=== PATIENT | male | born 1940 | race Caucasian/White ===

== ENCOUNTER → 2018-05-28 10:33 | Outpatient (CLI) | payer SELFPAY ==
--- NOTE | 2018-05-28 10:36 | ECHOD_ITS ---
Reason For Study: CARDIOMYOPATHY Procedure This was a 2D Doppler, Color Flow transthoracic echocardiogram. The exam was of adequate technical quality. Exam performed in department. Left Ventricle Moderately dilated left ventricle. Moderate concentric left ventricular hypertrophy. Severe global left ventricular systolic dysfunction. The estimated ejection fraction is 20 %. Septal motion consistent with IVCD. Diastolic function: considered indeterminate. Right Ventricle Mildly dilated right ventricle. Mild global right ventricular systolic dysfunction. Atria The left atrium is mildly enlarged. Normal right atrium. No doppler evidence for ASD. Mitral Valve There is no mitral annular calcification. Mild papillary muscle dysfunction of the mitral valve. Trivial mitral valve insufficiency. Tricuspid Valve Normal tricuspid valve. Trivial tricuspid valve insufficiency. Aortic Valve Trisinus/trileaflet aortic valve. Mild focal aortic valve thickening. Pulmonic Valve The pulmonic valve is not well visualized. Mild (1+) pulmonic valve insufficiency. Great Vessels Normal sized aortic root. Pericardium/Pleural No pericardial effusion. MMode/2D Measurements & Calculations LVIDd: 5.6 cm IVSd: 1.7 cm LAV(MOD-bp): 50.1 ml LVIDs: 5.1 cm LVPWd: 1.3 cm LAV(MOD-bp) Indexed: 27.7 ml/m2 RVDd: 3.7 cm FS: 8.9 % LAV(MOD-sp2): 54.4 ml LAV(MOD-sp4): 38.8 ml LA A4 area: 14.9 cm2 RA A4 area: 14.4 cm2 Doppler Measurements & Calculations MV E max gavin: 32.1 cm/sec Lat Peak E' Gavin: 3.2 cm/sec Med Peak E' Gavin: 3.8 cm/sec MV A max gavin: 81.9 cm/sec E/E' lat: 10.0 E/E' med: 8.5 MV E/A: 0.39 Ao V2 max: 132.7 cm/sec LV V1 max: 61.0 cm/sec PA V2 max: 75.4 cm/sec Ao max P.3 mmHg LV V1 max P.5 mmHg Interpretation Summary Moderately dilated left ventricle. Severe global left ventricular systolic dysfunction. The estimated ejection fraction is 20 %. Septal motion consistent with IVCD. Moderate concentric left ventricular hypertrophy. Mildly dilated right ventricle. Mild global right ventricular systolic dysfunction. The left atrium is mildly enlarged. Mild papillary muscle dysfunction of the mitral valve. Trivial mitral valve insufficiency. Trivial tricuspid valve insufficiency. Mild focal aortic valve thickening. Mild (1+) pulmonic valve insufficiency. Diastolic function: considered indeterminate. Ordering Physician: Alfredo Garcia Referring Physician: Alfredo Garcia Performed By: Alisa RDCS, Aurora REBOLLEDO and Student
== END ==
PROVIDERS: Visit Provider Internal Medicine Cardiovascular Disease
DX: I42.9 Cardiomyopathy, unspecified (principal)
CPT/HCPCS: 93306

== ENCOUNTER 2018-10-30 12:50 | Emergency (ER) | payer SELFPAY ==
[2018-10-30 12:51] VITALS: BP 125/74; PULSE 71; RESP 16; TEMP 36.6; O2SAT 97; BMI 26.9
--- NOTE | 2018-10-30 13:11 | EKG12_ITS ---
Test Reason : SYNCOPE Blood Pressure : / mmHG Vent. Rate : 080 BPM Atrial Rate : 080 BPM P-R Int : 178 ms QRS Dur : 136 ms QT Int : 424 ms P-R-T Axes : 044 -21 014 degrees QTc Int : 489 ms Atrial-sensed ventricular-paced rhythm Abnormal ECG Confirmed by ADRIANA FAIR, TANG ([id number]), deputy editor in chief AYDEN ERNST ([id number]) on 11/01/2018 12:40:18 PM Referred By: BIJAL Confirmed By:TANG WRIGHT MD
--- NOTE | 2018-10-30 13:11 | CT_ITS ---
STUDY: CTA CHEST REASON FOR EXAM: Male, 78 years old. Chest pain. Syncope. Recent pacemaker placement. RADIATION DOSAGE (If Supplied By Facility): CTDIvol = ( 14.97 ) mGy, DLP = ( 649.56 ) mGycm TECHNIQUE: The examination was performed with the intravenous administration of 75ml ml of Isovue 370 contrast material. Post-processing of the angiographic images was performed, with multiplanar reformation and 3D reconstruction. Individualized dose optimization techniques were used for this CT. COMPARISON: None. FINDINGS: The study is limited by patient motion and by streak artifact due to the patient's arms being at his sides. There is a segmental pulmonary embolus in the left upper lobe (image 137 series 2). There are no additional pulmonary emboli. There are no pulmonary infiltrates or pleural effusions. There is atelectasis at the lung bases. There is a pacemaker in place. The heart is normal in size. There is a small pericardial effusion which measures intermediate to high density and likely contains blood. There is no thoracic lymphadenopathy. Images through the upper abdomen demonstrate no significant abnormality. There are no destructive osseous lesions. CT/CTA Chest W/WO Contrast IMPRESSION: Segmental pulmonary embolus in the left upper lobe. Small pericardial effusion which measures intermediate to high density and likely contains blood. Bibasilar atelectasis. Otherwise, clear lungs. N.B. : The above information has been verbally conveyed by William Tinoco to Federico Machado MD, on 10/30/2018 15:04:23 (ET). Electronically Signed: William Tinoco, at 14:56 EST Tel , Service support ,
[2018-10-30 13:12] VITALS: O2SAT 97
--- NOTE | 2018-10-30 13:29 | ED.DCSUM_ITS ---
- ER Visit Summary Date of Service: 10/30/18 Chief Complaint: Syncope, shortness of breath, lower chest pain History of Present Illness: The patient is a 78 M who had AN internal pacemaker placed on October 28, 2 days ago, at [facility]. He developed pain in his lower sternal area yesterday. Today he had a syncopal episode in the bathroom. He denies straining. He continues to have this pain in the lower sternal area. He also has shortness of breath. Physical Examination: Vital signs reviewed. HEENT exam unremarkable. Heart is regular rate and rhythm without murmurs. Lungs are clear to auscultation. He has some lower sternal chest discomfort. Abdomen is soft and nontender. Extremities reveal no edema. Skin exam normal. Neurologic exam normal. Test Results: EKG is paced with a rate of 80. Nonspecific ST and T wave changes noted. Laboratory studies show a creatinine 1.75. Troponin is 0.105. CT of the chest reveals a segmental PE on the left. There is a small pericardial effusion Emergency Department Course and Treatment: Patient does have a PE but there is also a small pericardial effusion. Radiologist noted that this is likely blood but there is no extravasation of contrast into the pericardium. I will start the patient on heparin because I feel he needs this for the PE but will need to monitor his vital signs just in case the pericardial effusin gets larger. She was discussed with the [facility] for transfer back there due to his recent pacemaker placement there and possible need for CT surgery Treatment Plan: [] Disposition: Transfer Impression: Pulmonary embolism, hemorrhagic pericardial effusion This note was generated with [employer] dictation software. It may contain incorrect words, spelling, and punctuation that were not noted in review of the chart prior to signing ED Disposition - Plan for ED Patient: Chief Complaint: Syncope Referrals: Tamiko Copeland MD [Primary Care Provider] -
[2018-10-30 13:30] LABS: Absolute Lymphocyte Count 0.75 X10^3/ul (0.83-4.51); Absolute Neutrophil Count 11.3 X10^3/uL (2.0-7.7); Basophil# 0.02 X10^3/uL; Basophil% 0.2 % (0-1); Eosinophil# 0.13 X10^3/uL; Hematocrit 42.3 % (40-54); Hemoglobin 14.2 g/dl (13.0-16.5); Lymphocyte # 0.75 X10^3/ul (4.0); Lymphocyte % 5.7 % (19-41); Mean Corp Hgb Conc 33.6 g/gl (32-36); Mean Corpuscular Hgb 29.9 pg (27.0-32.0); Mean Corpuscular Volume 89.1 fL (80-94); Mean Platelet Vol. 10.8 fl (6.2-12.0); Monocyte# 0.96 X10^3/uL; Monocyte% 7.3 % (0-10); Neutrophil # 11.32 X10^3/uL (2.7-7.7); Neutrophil % 85.6 % (47-70); Platelet Count 141 K/mm3 (150-450); RBC Distribution Width CV 13.5 % (11.6-14.6); RBC Distribution Width SD 44.1 fl (35.1-43.9); Red Blood Count 4.75 M/mm3 (4.6-6.2); White Blood Count 13.2 K/mm3 (4.4-11.0)
[2018-10-30 13:33] LABS: POSITIVE COUNT NO; POSITIVE DIFFERENTIAL NO; POSITIVE MORPHOLOGY NO
[2018-10-30 13:40] LABS: Anion Gap 11 (5-15); BUN 28 mg/dL (7-18); Calcium,Total 8.7 mg/dL (8.5-10.1); Chloride 106 mmol/L (98-107); Creatinine, Serum 1.75 mg/dL (0.70-1.30); EST Glomerular Filtration Rate 40 mL/min (>60); Est Glom Filt Rate - Afr Amer 49 mL/min (>60); Glucose 129 mg/dL (74-106); Potassium 4.4 mmol/L (3.5-5.1); Sodium Level 139 mmol/L (136-145)
[2018-10-30 14:31] VITALS: BP 160/113; PULSE 77; RESP 14; O2SAT 96
[2018-10-30] MEDS: 0.9% Normal Saline 1,000 ML 999 ML IV (14:31)
[2018-10-30 15:34] VITALS: BP 168/87; PULSE 88; RESP 19; O2SAT 96
[2018-10-30 15:34] LABS: Partial Thromboplast Time 29.4 Seconds (24.1-36.2)
[2018-10-30] MEDS: HEPARIN/D5w 25,000 UNITS 25,000 UNITS/250 ML IV.SOLN. 12 UNITS IV (15:35)
[2018-10-30 17:03] VITALS: BP 168/105; PULSE 83; RESP 17; O2SAT 97
== END 2018-10-30 17:12 | disposition short-term general hospital (02) ==
PROVIDERS: Emergency Provider Emergency Medicine
DX: I26.99 Other pulmonary embolism without acute cor pulmonale (principal); I31.3 Pericardial effusion (noninflammatory); Z95.0 Presence of cardiac pacemaker; Z79.82 Long term (current) use of aspirin
CPT/HCPCS: 71275; 80048; 84484; 85025; 85730; 93005; 96361; 96365; 99285; J7030; Q9967; A4216

== ENCOUNTER → 2019-06-02 12:12 | Outpatient (CLI) | payer SELFPAY ==
[2019-03-04 10:07] VITALS: BMI 27.8
[2019-06-02 13:29] LABS: Albumin, Serum 3.4 g/dL (3.2-5.0); BUN 46 mg/dL (7-18); BUN/Creat Ratio 22.3 RATIO (10-20); Calcium,Total 9.2 mg/dL (8.5-10.1); Chloride 107 mmol/L (98-107); Creatinine, Serum 2.06 mg/dL (0.70-1.30); EST Glomerular Filtration Rate 33 mL/min (>60); Est Glom Filt Rate - Afr Amer 40 mL/min (>60); Glucose 89 mg/dL (74-106); Phosphorus 3.3 mg/dL (2.5-4.9); Potassium 4.8 mmol/L (3.5-5.1); Sodium Level 137 mmol/L (136-145)
== END ==
PROVIDERS: Visit Provider Internal Medicine Nephrology
DX: N18.3 Chronic kidney disease, stage 3 (moderate) (principal)
CPT/HCPCS: 36415; 80069

== ENCOUNTER → 2019-06-08 | Outpatient (CLI) | payer SELFPAY ==
[2019-03-04 10:07] VITALS: BMI 27.8
--- NOTE | 2019-06-08 10:00 | US_ITS ---
STUDY: RENAL ULTRASOUND - COMPLETE REASON FOR EXAM: Male, 79 years old. Left renal mass TECHNIQUE: Ultrasound evaluation of the kidneys was performed with real-time and static giron-scale imaging. COMPARISON: None available. FINDINGS: RIGHT KIDNEY: Normal location of the right kidney, which is normal in size. The right kidney measures 11.2 cm. There is a normal cortex of the right kidney. There is no right renal mass or cyst. There are no right renal calculi. There is no right hydronephrosis. DISTAL RIGHT URETER: There is non-visualization of the distal right ureter. There is no demonstrated right ureterovesical junction calculus. There is no demonstrated right ureteral jet. LEFT KIDNEY: Normal location of the left kidney, which is normal in size. The left kidney measures 17.1 cm. There is a normal cortex of the left kidney. There are multiple cysts in the left kidney, including a complex cyst which measures 8.2 x 7.4 x 5.9 cm. There are no left renal calculi. There is no left hydronephrosis. DISTAL LEFT URETER: There is non-visualization of the distal left ureter. There is no demonstrated left ureterovesical junction calculus. There is no demonstrated left ureteral jet. BLADDER: The urinary bladder is partially distended and appears unremarkable. US/Kidney and Bladder IMPRESSION: Multiple cysts in the left kidney including an 8.2 x 7.4 x 5.9 cm complex cystic lesion. Further evaluation with a renal protocol CT or MRI is recommended. Electronically Signed: William Earnest, at 17:32 EDT Tel , Service support ,
== END | disposition home or self-care (01) ==
LOC: US 09:57
PROVIDERS: Referring Provider Internal Medicine Nephrology; Visit Provider Internal Medicine Nephrology
DX: D49.512 Neoplasm of unspecified behavior of left kidney (principal)
CPT/HCPCS: 76770

== ENCOUNTER → 2019-07-06 14:59 | Outpatient (CLI) | payer SELFPAY ==
[2019-03-04 10:07] VITALS: BMI 27.8
[2019-07-06 16:07] LABS: Albumin, Serum 3.3 g/dL (3.2-5.0); BUN 43 mg/dL (7-18); Calcium,Total 8.6 mg/dL (8.5-10.1); Chloride 112 mmol/L (98-107); Creatinine, Serum 2.05 mg/dL (0.70-1.30); EST Glomerular Filtration Rate 34 mL/min (>60); Est Glom Filt Rate - Afr Amer 41 mL/min (>60); Glucose 78 mg/dL (74-106); Phosphorus 3.1 mg/dL (2.5-4.9); Potassium 3.8 mmol/L (3.5-5.1); Sodium Level 143 mmol/L (136-145)
== END ==
PROVIDERS: Referring Provider Internal Medicine Nephrology; Visit Provider Internal Medicine Nephrology
DX: N18.3 Chronic kidney disease, stage 3 (moderate) (principal)
CPT/HCPCS: 36415; 80069

== ENCOUNTER → 2019-08-02 12:53 | Outpatient (CLI) | payer SELFPAY ==
[2019-03-04 10:07] VITALS: BMI 27.8
--- NOTE | 2019-08-02 13:45 | MRI_ITS ---
STUDY: MRI ABDOMEN WITHOUT CONTRAST REASON FOR EXAM: Male, 79 years old. Left renal mass TECHNIQUE: Standardized fat and water weighted pulse sequences were obtained in all 3 orthogonal planes. COMPARISON: Ultrasound 06/08/2019 FINDINGS: The visualized lung bases are unremarkable. The visualized portions of the heart are within normal limits. Normal liver. Normal gallbladder and extrahepatic biliary system. Normal spleen. Normal pancreas. Normal bilateral adrenal glands. Normal right kidney. Markedly abnormal appearance of the left kidney with no normal renal parenchyma and a large (12 cm) exophytic cyst in the upper pole. The midsection is dominated by a 5 x 10 cm mixed solid and cystic area which again does not have the appearance of a normal renal parenchyma. Cystic renal cell carcinoma cannot be excluded. Normal visualized stomach. Normal small intestine. Normal colon. There is non-visualization of the appendix. Normal abdominal aorta. Normal inferior vena cava. Normal retroperitoneum. Normal abdominal wall. Normal osseous structures. MRI/Abdomen without Contrast IMPRESSION: Markedly abnormal appearance of the left kidney with no normal renal parenchyma and the kidney replaced with solid and cystic areas worrisome for cystic renal cell carcinoma. Electronically Signed: Alec Awan MD at 10:23 EDT Tel , Service support ,
[2019-08-02 13:46] VITALS: BP 168/96; PULSE 80; RESP 18; O2SAT 93
== END ==
PROVIDERS: Referring Provider Urology; Visit Provider Urology
DX: C64.9 Malignant neoplasm of unspecified kidney, except renal pelvis (principal)
CPT/HCPCS: 74181

== ENCOUNTER 2019-08-24 05:39 | Inpatient (IN) | payer SELFPAY ==
[2019-08-08 08:39] VITALS: BMI 28.4
[2019-08-19 10:55] LABS: Absolute Lymphocyte Count 0.81 X10^3/uL (0.83-4.51); Absolute Neutrophil Count 5.7 X10^3/uL (2.0-7.7); Basophil# 0.04 X10^3/uL; Basophil% 0.5 % (0-1); Eosinophil# 0.32 X10^3/uL; Eosinophils% 4.3 % (0-5); Hematocrit 42.6 % (40-54); Hemoglobin 14.1 g/dL (13.0-16.5); Lymphocyte # 0.81 X10^3/ul (4.0); Lymphocyte % 10.8 % (19-41); Mean Corp Hgb Conc 33.1 g/dL (32-36); Mean Corpuscular Hgb 29.8 pg (27.0-32.0); Mean Corpuscular Volume 90.1 fL (80-94); Mean Platelet Vol. 10.8 fl (6.2-12.0); Monocyte# 0.63 X10^3/uL; Monocyte% 8.4 % (0-10); NRBC Flagged by Analyzer 0 % (0-5); Neutrophil # 5.65 X10^3/uL (2.7-7.7); Neutrophil % 75.6 % (47-70); Platelet Count 190 K/mm3 (150-450); RBC Distribution Width CV 13.4 % (11.6-14.6); RBC Distribution Width SD 44.5 fl (35.1-43.9); Red Blood Count 4.73 M/mm3 (4.6-6.2); White Blood Count 7.5 K/mm3 (4.4-11.0)
[2019-08-19 11:06] LABS: International Normalized Ratio 1.1; Partial Thromboplast Time 28.7 Seconds (24.1-36.2)
[2019-08-19 11:23] LABS: ALB/GLOB Ratio 0.9 RATIO (0.9-2.4); AST(SGOT) 14 U/L (15-37); Alanine Aminotransfer ALT/SGPT 15 U/L (16-61); Albumin, Serum 3.2 g/dL (3.2-5.0); Alkaline Phosphatase 119 U/L (45-117); Anion Gap 6 (5-15); BUN 26 mg/dL (7-18); Calcium,Total 8.7 mg/dL (8.5-10.1); Chloride 110 mmol/L (98-107); Creatinine, Serum 1.53 mg/dL (0.70-1.30); EST Glomerular Filtration Rate 47 mL/min (>60); Est Glom Filt Rate - Afr Amer 57 mL/min (>60); Globulin 3.5 g/dL (2.2-4.2); Glucose 89 mg/dL (74-106); Potassium 4.2 mmol/L (3.5-5.1); Protein, Total 6.7 g/dL (6.4-8.2); Sodium Level 142 mmol/L (136-145)
[2019-08-24] VITALS (13 sets, daily range): BP systolic 134–186; BP diastolic 72–99; PULSE 37–71; RESP 14–18; TEMP 36–36.8; O2SAT 94–99; BMI 28.4; BMI 28.0
[2019-08-24] MEDS: Lactated Ringers 1,000 ML 100 ML IV ×2 (06:31)
--- NOTE | 2019-08-24 07:08 | EKG12_ITS ---
Test Reason : PREOP Blood Pressure : / mmHG Vent. Rate : 058 BPM Atrial Rate : 058 BPM P-R Int : 198 ms QRS Dur : 124 ms QT Int : 420 ms P-R-T Axes : -12 -05 -14 degrees QTc Int : 412 ms Electronic ventricular pacemaker Confirmed by ETHAN FAIR, EDUARDO ([id number]), multimedia editor AYDEN ERNST ([id number]) on 08/26/2019 11:23:32 AM Referred By: Rodrigo Vargas Confirmed By:MARIANA LONG MD
--- NOTE | 2019-08-24 07:30 | KID_PTH ---
PATIENT: JUNIOR Chadwick ERNST LOC: MS3 U#:[id number] AGE/SX: 79/M ROOM: [facility] [place]08/24/[address]: Dr. Brodie Rizo MD : [id number] BED: 1 DIS: 08/27/2019 SPEC #: [id number] RECD: 08/24/19 13:28 STATUS: ENE JASMEET #: [id number] ANNALISA: 08/24/19 07:[address]: Rodrigo Vargas DEPT: SURGICAL PATHOLOGY RECD BY: Zay Camargo ENTERED: 08/24/19 13:44 SP TYPE: KIDNEY OTHR DR: Dr. 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 See cancer summary below. SJ:christiane 08/29/19 KIDNEY CANCER SUMMARY: Procedure - radical nephrectomy Specimen laterality - left Tumor site - middle portion Tumor size - 0.9 x 0.2 cm (measured microscopically). See comment. Tumor focality - unifocal Macroscopic extent of tumor - tumor limited kidney Histologic type - clear cell renal cell carcinoma Sarcomatoid features - not identified Tumor necrosis - not identified Histologic grade (Lora nuclear grade) - grade 1 Microscopic tumor extension - tumor limited to kidney Margins - margins uninvolved by invasive carcinoma. Lymph-Vascular invasion - not identified Number of lymph nodes examined - 1 Number of lymph nodes involved - 0 Distant metastasis - not applicable Pathologic findings in non-neoplastic kidney - - multiple benign cysts replacing almost entire kidney (largest measuring 6 cm in greatest dimension. - Interstitial chronic inflammation. PATHOLOGIC STAGE: pT1a pN0 Mx The above summary is in compliance with [employer] (CAP) Cancer Protocols Checklist and [place] Joint Committee on Cancer (AJCC), Staging Manual, 8th Ed. COMMENT The tumor mass grossly measures 8 cm in greatest dimension, however, most of the tumor shows extensive area of hemorrhage, blood clots, fibrinous material, reactive changes and cystic formation. Microscopically, the carcinoma portion measures only 0.9 x 0.2 cm.. Case has been reviewed in consultation with Dr. An who concurs with the above diagnosis. IDC:AM MICROSCOPIC DESCRIPTION Slides are reviewed. GROSS DESCRIPTION Received in fixative is one container labeled with the patient's name and designated left kidney. The specimen consists of a left kidney containing a mass and is surrounded by an irregular envelope of fibroadipose tissue. Neoplasm does not extend into perirenal fat. The perirenal adipose tissue measures up to 2.5 to 7 cm in thickness. The tumor is not present at the soft tissue line of the specimen. The entire specimen weighs 1119 gm and measures 27 x 17 x 10 cm. The kidney is markedly distorted and measures 15 x 9 x 8 cm. Sections of the kidney reveal that the entire kidney is replaced by multiple cysts. The largest cyst measures 6 cm in greatest dimension. These cyst have smooth cyst cabezas. Sections also reveal a complex solid to cystic tumor mass measuring 8 x 6 x 6 cm. Sections of the mass reveal extensive area of hemorrhage, softening, cysts, blood clots, and fibrinous material. No obvious necrosis is noted. The tumor does not invade into the pelvicaliceal system and renal sinus. The area of renal pelvis appears to be markedly dilated. No obvious renal cortical tissue is noted and measures <0.1 cm in thickness. A 9 cm segment of unremarkable ureter is also noted. Adrenal cortex is not present in the submitted specimen. Network Engineering Advisor sections are submitted in 11 cassettes as follows: 1 - ureteral and vascular margins, 2-7 - tumor (6 & 7 also contains the overlying renal pelvis area), 8 & 9 - smooth walled cysts, 10 - ureter and renal pelvis, 11 - perirenal adipose tissue. / SJ:christiane 08/25/19 More sections of the tumor is submitted in cassettes 12-15. / SJ:christiane 08/26/19 TC:0 [facility]: [id number]
[2019-08-24] MEDS: Cefazolin 2 GM in 0.9% Normal Saline 100 ML IV (08:03)
--- NOTE | 2019-08-24 10:18 | PCM.OPRPT ---
Report of Operation Date of Procedure: 08/24/19 Pre-Operative Diagnosis: Large cystic left renal mass and a poorly functioning kidney Post-Operative Diagnosis: Same Surgery/Procedure Performed:: Laparoscopic robotic assisted left radical nephrectomy Description of Surgical Findings:: 79-year-old male was found to have a mass within a cystic kidney on the left side MRI was done this was concerning for an enhancing mass that could be a malignancy therefore recommended we proceed with a left radical nephrectomy given the suspicious mass within the kidney. Patient before surgery underwent preoperative clearance by cardiology because of his heart history. 79-year-old male was taken back to the operating room after smooth induction of anesthesia he was placed in supine on the table we then placed in full flank lateral. Placed an axillary roll below the axilla legs were bent appropriately and padded appropriately placed the arm in an arm waller laterally and he was positioned on the table and padded properly. The abdomen was shaved prepped and draped in usual sterile fashion, I then infiltrated in the mid abdomen the skin with lidocaine and then made a wheel and then once the incision was made I then insufflated the peritoneal cavity with CO2 gas placed the camera trocar placement left arm robotic trocar right robotic trocar and fourth robotic arm. We then placed a air seal port. The robot was docked and we started with the dissection first by reflecting the colon off the kidney the kidney was very cystic and large and the colon was draped over the top of the large cystic kidney after reflecting the colon starting at the upper part worked all the way down to the bottom towards the pelvis and the colon came up the kidney nicely I then dissected the reflected more the colon and mesentery off the kidney superiorly I went dissected the spleen off the kidney dissecting between the splenorenal ligament ligament. We then follow the tails of Gerota's fascia and elevated the fascia identified the ureter and the gonadal vein I then elevated this up I then docked the fourth arm using the Raptor I then elevated the kidney up start dissecting underneath the kidney was a very difficult dissection given extremely large cystic mass. I required the grafter and the pro-grasp the elevated up as a marched along the bottom side of the kidney I used clips electrocautery to dissect towards the hilum eventually reached the hilum I first identified the renal vein and then identified the gonadal inserting into the renal vein this was taken with clips and ligation identified identified the large renal artery the artery was then taken 2 clips down one clip up and transected the renal vein was then taken 2 clips down one clip up and transected the hilum then also had multiple small arteries these were taken with clips and dissection after dissecting the hilum free that I went superior dissected the kidney off the the spleen and splenorenal ligament ligament superiorly then we drop the kidney down and then released the kidney off the sidewall all the way from the top of the bottom and then finally the kidney was completely free inside the abdomen we were able to roll the kidney there was no bleeding from my dissection we undocked the fourth arm we placed the port in the lower abdomen and came in with the large 15 mm Endo Catch bag and was able to get this the kidney and the large Endo Catch bag but the kidney was so large it would not fit in the entire bag I did partially close the bag and then removed the bag and then the kidney only partially within the bag. We then opened up to the lower abdomen site long enough to identify the kidney length and then was able to extract the kidney in the bag from the lower abdomen. We then closed the lower abdomen in 2 layers using continuous 0 Vicryl first layer and second layer and then after closing the lower abdomen then we reinsufflated with recheck for bleeding we irrigated the abdomen copiously. We then closed the umbilical port with stitch and we closed the air seal port with a stitch all the trochars were removed all the instruments sponges and needles were accounted for patient was then extubated taken to PACU good condition we closed the all the incisions with subcuticular stitches and bandages taken the PACU in stable condition. Type of Anesthesia:: General Drains: none - Admit VTE Documentation VTE Present on Admission: No VTE Mechan Device Prophylaxis: SCD's
[2019-08-24] MEDS: Bupivacaine Mpf 0.5% 30 ML VIAL (10:30)
[2019-08-24 12:10] LABS: Hematocrit 41.7 % (40-54); Hemoglobin 13.9 g/dL (13.0-16.5); Mean Corp Hgb Conc 33.3 g/dL (32-36); Mean Corpuscular Hgb 29.8 pg (27.0-32.0); Mean Corpuscular Volume 89.3 fL (80-94); Mean Platelet Vol. 11.4 fl (6.2-12.0); POSITIVE COUNT YES; Platelet Count 121 K/mm3 (150-450); RBC Distribution Width CV 13.3 % (11.6-14.6); RBC Distribution Width SD 43.4 fl (35.1-43.9); Red Blood Count 4.67 M/mm3 (4.6-6.2); White Blood Count 10.8 K/mm3 (4.4-11.0)
[2019-08-24 12:11] LABS: Scan Indicated on CBC? Y/N YES- FLAGS NOTED
[2019-08-24 12:23] LABS: Anion Gap 7 (5-15); BUN 24 mg/dL (7-18); BUN/Creat Ratio 12.4 RATIO (10-20); Calcium,Total 8.3 mg/dL (8.5-10.1); Chloride 109 mmol/L (98-107); Creatinine, Serum 1.94 mg/dL (0.70-1.30); EST Glomerular Filtration Rate 36 mL/min (>60); Est Glom Filt Rate - Afr Amer 43 mL/min (>60); Glucose 116 mg/dL (74-106); Potassium 5.2 mmol/L (3.5-5.1); Sodium Level 138 mmol/L (136-145)
[2019-08-24] MEDS: Pantoprazole Sodium 20 MG Tablet PO (12:48)
[2019-08-24] MEDS: Docusate Sodium 100 MG Capsule PO ×2 (12:48→20:45)
[2019-08-24] MEDS: 0.45% Normal Saline 1,000 ML 75 ML IV (12:48)
[2019-08-24] MEDS: Losartan Potassium 50 MG Tablet PO (12:49)
[2019-08-24] MEDS: amLODIPine 5 MG Tablet PO (16:34)
[2019-08-24] MEDS: Morphine 2 MG/ML Syringe IV (16:40)
--- NOTE | 2019-08-24 18:12 | PN_ITS ---
Subjective: Patient is a 79-year-old male was admitted by urology for left laparoscopic nephrectomy on account of poorly functioning kidney and left kidney mass. He had said procedure on 08/24/2019. After surgery, he was noted to have poorly controlled blood pressure with systolic blood pressure being as high as the 180s and 190s. Hospitalist service was therefore consulted for medical management to help control blood pressure. Patient seen and examined. He said his blood pressure usually fluctuates and the systolic is usually between the 80s and 140s. He said this morning before he came to the hospital blood pressure was in the 140 systolic. Patient has received his losartan and amlodipine today. He said he was in a lot of pain after surgery but pain is well controlled on a time of review he only rated it at about 5/10 which was even with movement. He denied any lightheadedness or dizziness, palpitations, chest pain, diarrhea vomiting. Review of systems otherwise negative. Labs and vitals reviewed. Vitals/I&O's: Vital Signs Temp Pulse Resp BP Pulse Ox 97.6 F L 60 16 180/94 H 97 08/24/19 17:43 08/24/19 17:43 08/24/19 17:43 08/24/19 17:43 08/24/19 17:43 Oxygen Flow Rate (L/min) 2 Oxygen Delivery Method Room Air Weight: 198 lb 3.129 oz Body Mass Index (BMI) 28.4 Intake and Output for Last 24 Hours 08/22/19 08/23/19 08/24/19 23:59 23:59 23:59 Intake Total 1341.25 / 1341.25 Output Total 600 / 600 Balance 741.25 / 741.25 General: Alert, Oriented x3, Cooperative, No apparent distress HEENT: Atraumatic, PERRLA, EOMI, Normocephalic Oral: Dry Mucosa Neck: Supple, No JVD, Negative Carotid Bruits Lungs: Clear to auscultation, Normal air movement, No rhonchi, No wheeze Cardiovascular: Regular rate, Regular Rhythm, Normal S1, Normal S2, No murmurs Abdomen: Bowel Sounds Present, Soft, Non Tender, Non-Distended, No Hepato- splenomegaly, - - laparoscopic site dressing clean, no bleeding visualised Extremities: No clubbing, No cyanosis, No edema, Capillary Refill Less than 3 Seconds Skin: No rashes, No breakdown Musculoskeletal: No Tenderness to Palpation of Joints or Extremities Lymphatic: No Cervical, Supraclavicular, or Inguinal Adenopathy Neurological: Cranial nerves II-XII grossly intact, Neuro grossly intact, Motor Exam 5/5 strength throughout Psych/Mental Status: Normal Affect, Appropriate, Alert and oriented to time, place, person, mood and affect Laboratory Results 08/19/19 10:28: Blood Type Cancelled, A1 Antigen Typing Cancelled, Rho(D) Type Cancelled, Antibody Screen Cancelled, Crossmatch See Detail 08/24/19 11:50: WBC 10.8, RBC 4.67, Hgb 13.9, Hct 41.7, MCV 89.3, MCH 29.8, MCHC 33.3, RDW Std Deviation 43.4, RDW Coeff of Darrian 13.3, Plt Count 121 L, MPV 11.4 08/24/19 11:50: Sodium 138, Potassium 5.2 H, Chloride 109 H, Carbon Dioxide 22.0, Anion Gap 7, BUN 24 H, Creatinine 1.94 H, Estim Creat Clear Calc 32.40, Est GFR (MDRD) Af Amer 43 L, Est GFR (MDRD) Non-Af 36 L, BUN/Creatinine Ratio 12.4, Glucose 116 H, Calcium 8.3 L Current Medications Acetaminophen (Tylenol) 500 mg PO Q4H PRN PRN PRN Reason: Pain Score 1-10/10 /Headache Carvedilol (Coreg) 12.5 mg PO BID [facility] Cholecalciferol (Vitamin D) 2,000 unit PO DAILYCM [facility] Docusate Sodium (Colace) 100 mg PO BID [facility] Last Admin: 08/24/19 12:48 Dose: 100 mg Documented by: Enoxaparin Sodium (Lovenox) 40 mg SC DAILY@0600 [facility] Furosemide (Lasix) 20 mg PO DAILY PRN PRN Reason: edema Sodium Chloride () 1,000 mls @ 75 mls/hr IV .[id number] [facility] Last Infusion: 08/24/19 16:01 Dose: 75 mls/hr Documented by: Losartan Potassium (Cozaar) 50 mg PO DAILY [facility] Last Admin: 08/24/19 12:49 Dose: 50 mg Documented by: Magnesium Hydroxide (Milk Of Magnesia) 15 ml PO DAILY [facility] Morphine Sulfate () 2 mg IV Q4H PRN PRN PRN Reason: Pain Score 6-10/10 Last Admin: 08/24/19 16:40 Dose: 2 mg Documented by: Ondansetron HCl (Zofran) 4 mg IV Q6H PRN PRN PRN Reason: Nausea Oxycodone HCl (Oxyir) 5 mg PO Q4H PRN PRN PRN Reason: Pain Score 1-10/10 Pantoprazole Sodium (Protonix) 20 mg PO DAILY [facility] Last Admin: 08/24/19 12:48 Dose: 20 mg Documented by: Vitamin E (Vitamin E) [facility] Vital Signs/Narrative: Vital Signs Temp Pulse Resp BP Pulse Ox 08/24/19 17:43 97.6 F L 60 16 180/94 H 97 08/24/19 14:50 95 08/24/19 14:43 97.8 F 56 L 14 186/99 H 97 Medical Necessity - Tobacco Use Smoking Status: Never smoker Assessment/Plan All Active Problems (Last Reviewed 03/04/19 @ 10:14 by Kia Randolph) Systolic dysfunction (Acute) 79 y/o admitted for left laparoscopic nephrectomy, with poorly controlled BP 1. Poorly controlled blood pressure * BP has been in the 180s and 190s systolic. * elevated BP is likely due to post op pain; pain is better controlled now * received losartan and amlodipine after surgery * will give carvedilol, which she takes at home * IV hydralazine prn * will not add on any new meds, as I think this is likely due to post op pain * will monitor overnight, and adjust BP meds as needed * * 2. Left kidney mass s/p laparoscopic nephrectomy * today is postop day 0. Urology on board. Pain management as per urology. * Incentive spirometry * 3. History of ischemic cardiomyopathy status post pacemaker and defibrillator: Stable. VT prophylaxis: As per urology. Currently on SCDs. Thank you for the courtesy of the consult. We will continue to follow with you. Code Visit Inpatient E&M: 51157 [facility] Hosp L2
[2019-08-24] MEDS: Carvedilol 12.5 MG Tablet PO (18:58)
[2019-08-24] MEDS: hydrALAZINE 20 MG/ML Vial 10 MG IV (20:43)
[2019-08-24] MEDS: oxyCODONE 5 MG Tablet PO (20:43)
[2019-08-25] VITALS (7 sets, daily range): BP systolic 110–160; BP diastolic 70–78; PULSE 52–72; RESP 18; TEMP 36.4–37.1; O2SAT 92–96
[2019-08-25] MEDS: 0.45% Normal Saline 1,000 ML 75 ML IV (02:08)
[2019-08-25] MEDS: Enoxaparin 40 MG/0.4 ML Syringe SC (05:49)
[2019-08-25 06:06] LABS: Hematocrit 36.4 % (40-54); Hemoglobin 12.2 g/dL (13.0-16.5); Mean Corp Hgb Conc 33.5 g/dL (32-36); Mean Corpuscular Hgb 29.9 pg (27.0-32.0); Mean Corpuscular Volume 89.2 fL (80-94); Platelet Count 177 K/mm3 (150-450); RBC Distribution Width CV 13.4 % (11.6-14.6); Red Blood Count 4.08 M/mm3 (4.6-6.2); White Blood Count 11.3 K/mm3 (4.4-11.0)
[2019-08-25 06:22] LABS: Anion Gap 7 (5-15); BUN 31 mg/dL (7-18); BUN/Creat Ratio 16.8 RATIO (10-20); Calcium,Total 8.1 mg/dL (8.5-10.1); Chloride 107 mmol/L (98-107); Creatinine, Serum 1.84 mg/dL (0.70-1.30); EST Glomerular Filtration Rate 38 mL/min (>60); Est Glom Filt Rate - Afr Amer 46 mL/min (>60); Estimated Creatinine Clearance 34.16 ml/min; Glucose 160 mg/dL (74-106); Potassium 4.6 mmol/L (3.5-5.1); Sodium Level 134 mmol/L (136-145)
--- NOTE | 2019-08-25 07:15 | PN_ITS ---
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 Heart rate is within normal limits. He is maintaining an oxygen saturation of 94 to 96% on a 2 L nasal cannula. Fluid balance since admission is +850. He has had 1215 urine out since presentation to [place] [id number]. All lab was personally reviewed. White blood cell count today is 11.3. Hemoglobin is down to 12.2 13.9 yesterday. Platelets are 177,000 today. Sodium is low at 134 today and the serum bicarb is low at 20. BUN is 31 with a creatinine of 1.84, up from 1.94 on 08/24/2019. Creatinine in July 2019 was 2.05. Hospitalist service was consulted for elevated blood pressures. The patient has a history of hypertension and is on losartan and carvedilol. He was given Amlodipine on 08/24 for elevated BP. History is also positive for ischemic cardiomyopathy and he is status post pacemaker and defibrillator. He takes 20 mg of furosemide daily. An echocardiogram done in January 2019 showed an ejection fraction of 25 to 30%. There was grade 1 diastolic dysfunction. Bubble study was negative. There was no significant valvular heart disease. Carotid duplex also in December 2018 showed right internal carotid stenosis of 16 to 49% and the left internal carotid had no evidence of atherosclerotic disease. Slept well last night. Denies chest pain, shortness of breath, nausea. No bowel movement since admission. Has not been up to the chair yet or ambulated. Pain increases with exertion. Denies dizziness or lightheadedness. He is lying in bed at approximately 15 to 20 degrees and has no orthopnea and no JVD. - Physical Exam Vitals/I&O's: Vital Signs Temp Pulse Resp BP Pulse Ox 98.3 F 68 18 134/70 H 94 08/25/19 02:27 08/25/19 02:27 08/25/19 02:27 08/25/19 02:27 08/25/19 07:00 Oxygen Flow Rate (L/min) 2 Oxygen Delivery Method Nasal Cannula Weight: 198 lb 3.129 oz Body Mass Index (BMI) 28.4 Intake and Output for Last 24 Hours 08/23/19 08/24/19 08/25/19 23:59 23:59 23:59 Intake Total 1341.25 / 1341.25 758.75 / 758.75 Output Total 600 / 850 650 / 650 Balance 741.25 / 491.25 108.75 / 108.75 General: Alert, Oriented x3, Cooperative, No apparent distress HEENT: PERRLA, EOMI, Normocephalic Oral: Moist Mucosa, No Gingival or Mucosal Lesions/ Ulcerations Neck: Supple, No JVD, Negative Carotid Bruits, No Nodes, Trachea Midline Lungs: Clear to auscultation Cardiovascular: Regular rate, Regular Rhythm, Normal S1, Normal S2, No murmurs, No rub noted, No Gallop, - - Heart sounds are somewhat distant Abdomen: Soft, Hypoactive Bowel Sounds, Tender Extremities: No clubbing, No cyanosis, No edema, No Calf Tenderness Skin: No rashes, No breakdown Neurological: Cranial nerves II-XII grossly intact, Neuro grossly intact Psych/Mental Status: Normal Affect, Appropriate Laboratory Results 08/19/19 10:28: Blood Type Cancelled, A1 Antigen Typing Cancelled, Rho(D) Type Cancelled, Antibody Screen Cancelled, Crossmatch See Detail 08/24/19 11:50: WBC 10.8, RBC 4.67, Hgb 13.9, Hct 41.7, MCV 89.3, MCH 29.8, MCHC 33.3, RDW Std Deviation 43.4, RDW Coeff of Darrian 13.3, Plt Count 121 L, MPV 11.4 08/24/19 11:50: Sodium 138, Potassium 5.2 H, Chloride 109 H, Carbon Dioxide 22.0, Anion Gap 7, BUN 24 H, Creatinine 1.94 H, Estim Creat Clear Calc 32.40, Est GFR (MDRD) Af Amer 43 L, Est GFR (MDRD) Non-Af 36 L, BUN/Creatinine Ratio 12.4, Glucose 116 H, Calcium 8.3 L 08/25/19 05:38: WBC 11.3 H, RBC 4.08 L, Hgb 12.2 L, Hct 36.4 L, MCV 89.2, MCH 29.9, MCHC 33.5, RDW Std Deviation 44.0 H, RDW Coeff of Darrian 13.4, Plt Count 177, MPV 11.0 08/25/19 05:38: Sodium 134 L, Potassium 4.6, Chloride 107, Carbon Dioxide 20.0 L , Anion Gap 7, BUN 31 H, Creatinine 1.84 H, Estim Creat Clear Calc 34.16, Est GFR (MDRD) Af Amer 46 L, Est GFR (MDRD) Non-Af 38 L, BUN/Creatinine Ratio 16.8, Glucose 160 H, Calcium 8.1 L Current Medications Acetaminophen (Tylenol) 500 mg PO Q4H PRN PRN PRN Reason: Pain Score 1-10/10 /Headache Carvedilol (Coreg) 12.5 mg PO BID [facility] Last Admin: 08/24/19 18:58 Dose: 12.5 mg Documented by: Cholecalciferol (Vitamin D) [facility] Docusate Sodium (Colace) 100 mg PO BID [facility] Last Admin: 08/24/19 20:45 Dose: 100 mg Documented by: Enoxaparin Sodium (Lovenox) 40 mg SC DAILY@0600 [facility] Last Admin: 08/25/19 05:49 Dose: 40 mg Documented by: Furosemide (Lasix) 20 mg PO DAILY PRN PRN Reason: edema Hydralazine HCl (Apresoline Iv) 10 mg IV Q6H PRN PRN PRN Reason: BLOOD PRESSURE ELEVATION Last Admin: 08/24/19 20:43 Dose: 10 mg Documented by: Sodium Chloride () 1,000 mls @ 75 mls/hr IV .[id number] [facility] Last Admin: 08/25/19 02:08 Dose: 75 mls/hr Documented by: Losartan Potassium (Cozaar) 50 mg PO DAILY [facility] Last Admin: 08/24/19 12:49 Dose: 50 mg Documented by: Magnesium Hydroxide (Milk Of Magnesia) 15 ml PO DAILY [facility] Morphine Sulfate () 2 mg IV Q4H PRN PRN PRN Reason: Pain Score 6-10/10 Last Admin: 08/24/19 16:40 Dose: 2 mg Documented by: Ondansetron HCl (Zofran) 4 mg IV Q6H PRN PRN PRN Reason: Nausea Oxycodone HCl (Oxyir) 5 mg PO Q4H PRN PRN PRN Reason: Pain Score 1-10/10 Last Admin: 08/24/19 20:43 Dose: 5 mg Documented by: Pantoprazole Sodium (Protonix) 20 mg PO DAILY [facility] Last Admin: 08/24/19 12:48 Dose: 20 mg Documented by: Vitamin E (Vitamin E) 800 [facility] Medical Necessity - Tobacco Use Smoking Status: Never smoker Assessment/Plan All Active Problems (Last Reviewed 03/04/19 @ 10:14 by Kia Randolph) Systolic dysfunction (Acute) Impressions 1. 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 Hypertension-elevation in blood pressure on 08/24/2019 was more likely than not secondary to pain and stress. Blood pressure today is well controlled. Continue current medications. 3. Cardiomyopathy with a 25 to 30% ejection fraction in January 2019. Stage I diastolic dysfunction. Lungs are clear to auscultation and he is maintaining appropriate oxygen saturation on room air. Continue to monitor intake and output closely. No IV fluids necessary at this time. Recheck BMP in the a.m. 4. Mild hyponatremia up to the chair with meals and ambulate today. Encouraged him to take the pain medication regularly for 4-5 days and not wait until it gets severe. Reinforced need to do incentive spirometry to protect against postoperative pneumonia. Enoxaparin for DVT prophylaxis. Continue losartan and carvedilol. On Protonix for GI prophylaxis. Add stool softeners Monitor urine output and cardiopulmonary status closely. Lasix is ordered as needed. Patient has severe cardiomyopathy. Off IV fluids. Has not taken MS or Oxy IR since 08/24. Also not taking Tylenol Recheck a CBC and a BMP in the AM. Code Visit Inpatient E&M: 41503 [facility] Hosp L2
--- NOTE | 2019-08-25 07:35 | NURSING ---
O2 DC'D - WILL RECHECK ON RA
--- NOTE | 2019-08-25 07:46 | PN_ITS ---
Subjective: Postop day 1 status post left nephrectomy, doing well he did have high blood pressure last night was on all his regular medications were still pressure was high and hospitalist was consulted which they treated with hydralazine. This morning he looks clinically well he is up in his bed belly is nice and soft he is ready to try some food. - Physical Exam Vitals/I&O's: Vital Signs Temp Pulse Resp BP Pulse Ox 98.2 F 57 L 18 121/76 H 96 08/25/19 07:27 08/25/19 07:27 08/25/19 07:27 08/25/19 07:27 08/25/19 07:27 Oxygen Flow Rate (L/min) 2 Oxygen Delivery Method Nasal Cannula Weight: 89.9 kg Body Mass Index (BMI) 28.4 Intake and Output for Last 24 Hours 08/23/19 08/24/19 08/25/19 23:59 23:59 23:59 Intake Total 1341.25 / 1341.25 758.75 / 758.75 Output Total 600 / 850 650 / 650 Balance 741.25 / 491.25 108.75 / 108.75 General: Alert, Oriented x3, Cooperative HEENT: Atraumatic, PERRLA, EOMI, Normocephalic Neck: Supple, No JVD, Negative Carotid Bruits Lungs: Clear to auscultation, Normal air movement Cardiovascular: Regular rate, No murmurs Abdomen: Bowel Sounds Present, Soft, Non Tender Extremities: No edema, Capillary Refill Less than 3 Seconds Skin: No rashes, No breakdown Musculoskeletal: No Tenderness to Palpation of Joints or Extremities Neurological: Cranial nerves II-XII grossly intact Psych/Mental Status: Normal Affect, Appropriate Laboratory Results 08/24/19 11:50: WBC 10.8, RBC 4.67, Hgb 13.9, Hct 41.7, MCV 89.3, MCH 29.8, MCHC 33.3, RDW Std Deviation 43.4, RDW Coeff of Darrian 13.3, Plt Count 121 L, MPV 11.4 08/24/19 11:50: Sodium 138, Potassium 5.2 H, Chloride 109 H, Carbon Dioxide 22.0, Anion Gap 7, BUN 24 H, Creatinine 1.94 H, Estim Creat Clear Calc 32.40, Est GFR (MDRD) Af Amer 43 L, Est GFR (MDRD) Non-Af 36 L, BUN/Creatinine Ratio 12.4, Glucose 116 H, Calcium 8.3 L 08/25/19 05:38: WBC 11.3 H, RBC 4.08 L, Hgb 12.2 L, Hct 36.4 L, MCV 89.2, MCH 29.9, MCHC 33.5, RDW Std Deviation 44.0 H, RDW Coeff of Darrian 13.4, Plt Count 177, MPV 11.0 08/25/19 05:38: Sodium 134 L, Potassium 4.6, Chloride 107, Carbon Dioxide 20.0 L , Anion Gap 7, BUN 31 H, Creatinine 1.84 H, Estim Creat Clear Calc 34.16, Est GFR (MDRD) Af Amer 46 L, Est GFR (MDRD) Non-Af 38 L, BUN/Creatinine Ratio 16.8, Glucose 160 H, Calcium 8.1 L Current Medications Acetaminophen (Tylenol) 500 mg PO Q4H PRN PRN PRN Reason: Pain Score 1-10/10 /Headache Carvedilol (Coreg) 12.5 mg PO BID [facility] Last Admin: 08/24/19 18:58 Dose: 12.5 mg Documented by: Cholecalciferol (Vitamin D) [facility] Docusate Sodium (Colace) 100 mg PO BID [facility] Last Admin: 08/24/19 20:45 Dose: 100 mg Documented by: Enoxaparin Sodium (Lovenox) 40 mg SC DAILY@0600 [facility] Last Admin: 08/25/19 05:49 Dose: 40 mg Documented by: Furosemide (Lasix) 20 mg PO DAILY PRN PRN Reason: edema Hydralazine HCl (Apresoline Iv) 10 mg IV Q6H PRN PRN PRN Reason: BLOOD PRESSURE ELEVATION Last Admin: 08/24/19 20:43 Dose: 10 mg Documented by: Sodium Chloride () 1,000 mls @ 75 mls/hr IV .[id number] [facility] Last Admin: 08/25/19 02:08 Dose: 75 mls/hr Documented by: Losartan Potassium (Cozaar) 50 mg PO DAILY [facility] Last Admin: 08/24/19 12:49 Dose: 50 mg Documented by: Magnesium Hydroxide (Milk Of Magnesia) 15 ml PO DAILY [facility] Morphine Sulfate () 2 mg IV Q4H PRN PRN PRN Reason: Pain Score 6-1010 Last Admin: 08/24/19 16:40 Dose: 2 mg Documented by: Ondansetron HCl (Zofran) 4 mg IV Q6H PRN PRN PRN Reason: Nausea Oxycodone HCl (Oxyir) 5 mg PO Q4H PRN PRN PRN Reason: Pain Score 1-1010 Last Admin: 08/24/19 20:43 Dose: 5 mg Documented by: Pantoprazole Sodium (Protonix) 20 mg PO DAILY [facility] Last Admin: 08/24/19 12:48 Dose: 20 mg Documented by: Vitamin E (Vitamin E) [facility] Medical Necessity - Tobacco Use Smoking Status: Never smoker Assessment/Plan All Active Problems (Last Reviewed 03/04/19 @ 10:14 by Kia Randolph) Systolic dysfunction (Acute) 79-year-old male status post nephrectomy for a left renal mass
[2019-08-25] MEDS: Docusate Sodium 100 MG Capsule PO ×2 (09:47→20:56)
[2019-08-25] MEDS: Losartan Potassium 50 MG Tablet PO (09:47)
[2019-08-25] MEDS: Pantoprazole Sodium 20 MG Tablet PO (09:47)
[2019-08-25] MEDS: Carvedilol 12.5 MG Tablet PO ×2 (09:47→20:56)
[2019-08-25] MEDS: Vitamin E 400 UNITS Capsule 800 UNITS PO (09:47)
[2019-08-25] MEDS: Magnesium Hydroxide 30 ML UDC 15 ML PO (09:49)
[2019-08-25] MEDS: oxyCODONE 5 MG Tablet PO ×2 (11:26→20:56)
--- NOTE | 2019-08-25 13:12 | CASEMGMT ---
RN CM Assessment Introduced role of RN CM to patient and patient Mer at bedside.? Patient is alert, oriented and able?to participate in RN CM Assessment. ?Care providers, pharmacy, and demographics verified. Presentation: Scheduled surgery 08/24/19 Laparoscopic robotic assisted Left radical nephrectomy. H/o Patient was found to have a mass w/in a cystic kidney on Left side, MRI was done-was concerning for enhanced mass that could be malignancy. Admit Dx: Left Renal Mass Re-Admit: No Barriers/Issues: None. Patient states does have pain and increased with coughing. Has IS at bedside. PCP: Tamiok Copeland Specialists: Cardio- Dr Garcia Preferred Pharmacy: [facility], [place] Insurance: [facility] Package Plan Rx Benefit:?No ?LNOK: Mer Pearl LW/HPOA: States has a LW, aware not on file at [facility] and will scan on file when he brings a copy. Declines offered information or services for HPOA on this admission. Aware to notify staff if he changes his mind and aware can come in as an outpatient to complete. Living Arrangements:?Lives with in a SS home, 3 steps with railing to enter home. ADL?s: Independent with ambulation, does have a cane if he needs to use. Independent with ADLs Transportation: Patient drives, denies any transportation issues DME: Cane, denies any other DME HHC: None SNF: None Goal: Home and does not think will have any needs. Denies any issues/concerns/or questions with DC planning at this time. Aware CM remains available for any emerging needs. DC PLAN: Home with no anticipated needs identified at this time. KELLY Briggs
--- NOTE | 2019-08-25 14:01 | NURSING ---
PT WAS ASSISTED TO BR BY MELTER CLERK, PT SAT ON TOILET, VOIDED BUT NOT MEASURED.
--- NOTE | 2019-08-25 17:15 | NURSING ---
Pt bladder scanned = 250ml. Pt states does not feel need to void. Enc to drink po fluids. Will monitor.
[2019-08-26] VITALS (9 sets, daily range): BP systolic 144–180; BP diastolic 65–111; PULSE 50–87; RESP 18; TEMP 36.9–37.3; O2SAT 91–99
[2019-08-26] MEDS: oxyCODONE 5 MG Tablet PO ×3 (04:03→21:39)
[2019-08-26 05:36] LABS: Hematocrit 36.4 % (40-54); Hemoglobin 12.1 g/dL (13.0-16.5); Mean Corp Hgb Conc 33.2 g/dL (32-36); Mean Corpuscular Hgb 29.8 pg (27.0-32.0); Mean Corpuscular Volume 89.7 fL (80-94); Mean Platelet Vol. 11.3 fl (6.2-12.0); Platelet Count 156 K/mm3 (150-450); RBC Distribution Width CV 13.5 % (11.6-14.6); Red Blood Count 4.06 M/mm3 (4.6-6.2); White Blood Count 9.6 K/mm3 (4.4-11.0)
[2019-08-26 05:54] LABS: Anion Gap 7 (5-15); BUN 36 mg/dL (7-18); BUN/Creat Ratio 19.7 RATIO (10-20); Calcium,Total 7.9 mg/dL (8.5-10.1); Chloride 109 mmol/L (98-107); Creatinine, Serum 1.83 mg/dL (0.70-1.30); EST Glomerular Filtration Rate 38 mL/min (>60); Est Glom Filt Rate - Afr Amer 46 mL/min (>60); Estimated Creatinine Clearance 34.35 ml/min; Glucose 107 mg/dL (74-106); Magnesium 2.2 mg/dL (1.6-2.6); Sodium Level 138 mmol/L (136-145)
[2019-08-26] MEDS: Enoxaparin 40 MG/0.4 ML Syringe SC (06:15)
--- NOTE | 2019-08-26 08:05 | PN_ITS ---
Subjective: eating oky, only a little bit of gas okay with urination - Physical Exam Vitals/I&O's: Vital Signs Temp Pulse Resp BP Pulse Ox 98.5 F 66 18 160/78 H 95 08/26/19 02:50 08/26/19 02:50 08/26/19 02:50 08/26/19 02:50 08/26/19 02:50 Oxygen Flow Rate (L/min) 2 Oxygen Delivery Method Room Air Weight: 89.9 kg Body Mass Index (BMI) 28.4 Intake and Output for Last 24 Hours 08/24/19 08/25/19 08/26/19 23:59 23:59 23:59 Intake Total 1341.25 / 1341.25 1933.75 / 2133.75 200 / 200 Output Total 600 / 850 650 / 1050 675 / 675 Balance 741.25 / 491.25 1283.75 / 1083.75 -475 / -475 General: Alert, Oriented x3, Cooperative HEENT: Atraumatic, PERRLA, EOMI, Normocephalic Neck: Supple, No JVD, Negative Carotid Bruits Lungs: Clear to auscultation, Normal air movement Cardiovascular: Regular rate, No murmurs Abdomen: Bowel Sounds Present, Soft, Non Tender Extremities: No edema, Capillary Refill Less than 3 Seconds Skin: No rashes, No breakdown Musculoskeletal: No Tenderness to Palpation of Joints or Extremities Neurological: Cranial nerves II-XII grossly intact Psych/Mental Status: Normal Affect, Appropriate Laboratory Results 08/26/19 05:16: WBC 9.6, RBC 4.06 L, Hgb 12.1 L, Hct 36.4 L, MCV 89.7, MCH 29.8, MCHC 33.2, RDW Std Deviation 44.0 H, RDW Coeff of Darrian 13.5, Plt Count 156, MPV 11.3 08/26/19 05:16: Sodium 138, Potassium 4.0, Chloride 109 H, Carbon Dioxide 22.0, Anion Gap 7, BUN 36 H, Creatinine 1.83 H, Estim Creat Clear Calc 34.35, Est GFR (MDRD) Af Amer 46 L, Est GFR (MDRD) Non-Af 38 L, BUN/Creatinine Ratio 19.7, Glucose 107 H, Calcium 7.9 L, Magnesium 2.2 Current Medications Acetaminophen (Tylenol) 500 mg PO Q4H PRN PRN PRN Reason: Pain Score 1-10/10 /Headache Bisacodyl (Dulcolax) 10 mg RECTAL X1 ONE Stop: 08/26/19 08:05 Carvedilol (Coreg) 12.5 mg PO BID [facility] Last Admin: 08/25/19 20:56 Dose: 12.5 mg Documented by: Cholecalciferol (Vitamin D) [facility] Last Admin: 08/25/19 09:46 Dose: 2,000 unit Documented by: Docusate Sodium (Colace) 100 mg PO BID [facility] Last Admin: 08/25/19 20:56 Dose: 100 mg Documented by: Enoxaparin Sodium (Lovenox) 40 mg SC DAILY@0600 [facility] Last Admin: 08/26/19 06:15 Dose: 40 mg Documented by: Furosemide (Lasix) 20 mg PO DAILY PRN PRN Reason: edema Hydralazine HCl (Apresoline Iv) 10 mg IV Q6H PRN PRN PRN Reason: BLOOD PRESSURE ELEVATION Last Admin: 08/24/19 20:43 Dose: 10 mg Documented by: Losartan Potassium (Cozaar) 50 mg PO DAILY [facility] Last Admin: 08/25/19 09:47 Dose: 50 mg Documented by: Magnesium Hydroxide (Milk Of Magnesia) 15 ml PO DAILY [facility] Last Admin: 08/25/19 09:49 Dose: 15 ml Documented by: Morphine Sulfate () 2 mg IV Q4H PRN PRN PRN Reason: Pain Score 6-10/10 Last Admin: 08/24/19 16:40 Dose: 2 mg Documented by: Ondansetron HCl (Zofran) 4 mg IV Q6H PRN PRN PRN Reason: Nausea Oxycodone HCl (Oxyir) 5 mg PO Q4H PRN PRN PRN Reason: Pain Score 1-10/10 Last Admin: 08/26/19 04:03 Dose: 5 mg Documented by: Pantoprazole Sodium (Protonix) 20 mg PO DAILY [facility] Last Admin: 08/25/19 09:47 Dose: 20 mg Documented by: Sodium Chloride () 10 ml IV PRN PRN PRN Reason: IV flush Vitamin [facility] (Vitamin E) [facility] Last Admin: 08/25/19 09:47 Dose: 800 units Documented by: Medical Necessity - Tobacco Use Smoking Status: Never smoker Assessment/Plan All Active Problems (Last Reviewed 03/04/19 @ 10:14 by Kia Randolph) Systolic dysfunction (Acute) suppository today if does better possible home today?
[2019-08-26] MEDS: Pantoprazole Sodium 20 MG Tablet PO (10:34)
[2019-08-26] MEDS: Losartan Potassium 50 MG Tablet PO (10:34)
[2019-08-26] MEDS: Docusate Sodium 100 MG Capsule PO ×2 (10:34→21:53)
[2019-08-26] MEDS: Carvedilol 12.5 MG Tablet PO ×2 (10:34→21:53)
[2019-08-26] MEDS: Vitamin E 400 UNITS Capsule 800 UNITS PO (10:34)
[2019-08-26] MEDS: Magnesium Hydroxide 30 ML UDC 15 ML PO (10:37)
[2019-08-26] MEDS: Bisacodyl 10 MG Suppository RECTAL (11:05)
[2019-08-26] MEDS: 0.9% Saline Lock 10 ML Syringe IV ×3 (14:59→21:53)
[2019-08-26] MEDS: Ondansetron 4 MG/2 ML Vial IV ×2 (14:59→21:39)
[2019-08-26] MEDS: hydrALAZINE 20 MG/ML Vial 10 MG IV (21:53)
--- NOTE | 2019-08-26 21:53 | PN_ITS ---
Subjective: Still not requesting pain medication on a regular basis. Complaining of increased abdominal pain today when he bears down to try to have a bowel movement. He has been unsuccessful. Reviewed Dr. Vargas's note and the pt was supposed to go home if he moved his bowels. He got a Dulcolax supp and he did not have a BM. He is anxious now and uncomfortable and his BP is being affected by this. Objective: PHYSICAL EXAM: GENERAL: alert, oriented X 3, Cooperative, NAD ORAL: moist mucosa, no mucosal lesions NECK: No JVD, supple, trachea midline LUNGS: CTA, symmetric chest expansion HEART: RRR, Normal S1 and S2, no rub, no gallop ABDOMEN: soft, NT, ND, BS hypoactive, no guarding with palpation EXTREMITIES: no edema, no cyanosis, no calf tenderness SKIN: No rashes, no breakdown NEUROLOGIC: no focal neurologic deficits PSYCH: appropriate, normal affect, pleasant - Physical Exam Vitals/I&O's: Vital Signs Temp Pulse Resp BP Pulse Ox 99 F 87 18 180/111 H 96 08/26/19 21:52 08/26/19 21:52 08/26/19 21:52 08/26/19 21:52 08/26/19 21:52 Oxygen Flow Rate (L/min) 2 Oxygen Delivery Method Room Air Weight: 198 lb 3.129 oz Body Mass Index (BMI) 28.4 Intake and Output for Last 24 Hours 08/24/19 08/25/19 08/26/19 23:59 23:59 23:59 Intake Total 1341.25 / 1341.25 1933.75 / 2133.75 850 / 850 Output Total 600 / 850 650 / 1050 675 / 675 Balance 741.25 / 491.25 1283.75 / 1083.75 175 / 175 Laboratory Results 08/26/19 05:16: WBC 9.6, RBC 4.06 L, Hgb 12.1 L, Hct 36.4 L, MCV 89.7, MCH 29.8, MCHC 33.2, RDW Std Deviation 44.0 H, RDW Coeff of Darrian 13.5, Plt Count 156, MPV 11.3 08/26/19 05:16: Sodium 138, Potassium 4.0, Chloride 109 H, Carbon Dioxide 22.0, Anion Gap 7, BUN 36 H, Creatinine 1.83 H, Estim Creat Clear Calc 34.35, Est GFR (MDRD) Af Amer 46 L, Est GFR (MDRD) Non-Af 38 L, BUN/Creatinine Ratio 19.7, Glucose 107 H, Calcium 7.9 L, Magnesium 2.2 Current Medications Acetaminophen (Tylenol) 500 mg PO Q4H PRN PRN PRN Reason: Pain Score 1-10/10 /Headache Carvedilol (Coreg) 12.5 mg PO BID [facility] Last Admin: 08/26/19 10:34 Dose: 12.5 mg Documented by: Cholecalciferol (Vitamin D) [facility] Last Admin: 08/26/19 10:34 Dose: 2,000 unit Documented by: Docusate Sodium (Colace) 100 mg PO BID [facility] Last Admin: 08/26/19 10:34 Dose: 100 mg Documented by: Enoxaparin Sodium (Lovenox) 40 mg SC DAILY@0600 [facility] Last Admin: 08/26/19 06:15 Dose: 40 mg Documented by: Furosemide (Lasix) 20 mg PO DAILY PRN PRN Reason: edema Hydralazine HCl (Apresoline Iv) 10 mg IV Q6H PRN PRN PRN Reason: BLOOD PRESSURE ELEVATION Last Admin: 08/24/19 20:43 Dose: 10 mg Documented by: Losartan Potassium (Cozaar) 50 mg PO DAILY [facility] Last Admin: 08/26/19 10:34 Dose: 50 mg Documented by: Magnesium Hydroxide (Milk Of Magnesia) 15 ml PO DAILY [facility] Last Admin: 08/26/19 10:37 Dose: 15 ml Documented by: Morphine Sulfate () 2 mg IV Q4H PRN PRN PRN Reason: Pain Score 6-10/10 Last Admin: 08/24/19 16:40 Dose: 2 mg Documented by: Ondansetron HCl (Zofran) 4 mg IV Q6H PRN PRN PRN Reason: Nausea Last Admin: 08/26/19 21:39 Dose: 4 mg Documented by: Oxycodone HCl (Oxyir) 5 mg PO Q4H PRN PRN PRN Reason: Pain Score 1-10/10 Last Admin: 08/26/19 21:39 Dose: 5 mg Documented by: Pantoprazole Sodium (Protonix) 20 mg PO DAILY [facility] Last Admin: 08/26/19 10:34 Dose: 20 mg Documented by: Sodium Chloride () 10 ml IV PRN PRN PRN Reason: IV flush Last Admin: 08/26/19 21:39 Dose: 10 ml Documented by: Vitamin E (Vitamin E) [facility] Last Admin: 08/26/19 10:34 Dose: 800 units Documented by: Medical Necessity - Tobacco Use Smoking Status: Never smoker Assessment/Plan All Active Problems (Last Reviewed 03/04/19 @ 10:14 by Kia Randolph) Systolic dysfunction (Acute) Impressions 1. 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 Hypertension-elevation in blood pressure on 08/24/2019 was more likely than not secondary to pain and stress. BP goes up with any discomfort and stress. Hydralazine increased to 10-20 mg IV Q 4 H PRN SYS>150, DIAST > 85 3. Cardiomyopathy with a 25 to 30% ejection fraction in January 2019. Stage I diastolic dysfunction. Lungs are clear to auscultation and he is maintaining appropriate oxygen saturation on room air. Continue to monitor intake and output closely. No IV fluids necessary at this time. Recheck BMP in the a.m. 4. Mild hyponatremia-resolved 5. Constipation Mag citrate 150 cc now Code Visit Inpatient E&M: 36664 Subs Hosp L2
[2019-08-26] MEDS: Magnesium Citrate 300 ML 150 ML PO (23:28)
[2019-08-26] MEDS: Acetaminophen 500 MG Tablet PO (23:32)
[2019-08-27 03:29] VITALS: BP 114/61; PULSE 68; RESP 16; TEMP 37.1; O2SAT 97
[2019-08-27 03:35] VITALS: PULSE 68; RESP 16; O2SAT 97
[2019-08-27] MEDS: Enoxaparin 40 MG/0.4 ML Syringe SC (06:30)
--- NOTE | 2019-08-27 08:16 | DCINST_ITS ---
Discharge Diet: Light diet - advance as tolerated Discharge Activity: No Restrictions, May not drive while taking narcotic pain medications. Call your doctor if your incision/area has: Sudden Increased Bleeding Call your doctor if you observe: Uncontrolled pain Allergies/Adverse Reactions: Allergies No Known Allergies Allergy (Verified 08/24/19 06:15) Medications to take at Discharge Aspirin [Aspirin, Baby] 81 mg PO DAILY@0800 08/24/17 [place]-3 Fatty Acids/Fish Oil [[place] 3 Fish Oil Softgel] 1 ea PO DAILY 08/24/17 Vitamin E 800 units PO DAILY 08/24/17 Cholecalciferol (Vitamin D3) [Vitamin D3] 2,000 unit PO DAILY 10/30/18 furosemide 20 mg tablet 20 mg PO DAILY PRN #90 tab 08/08/19 Carvedilol 12.5 mg PO BID 08/24/19 Losartan Potassium 50 mg PO DAILY 08/24/19 Docusate Sodium [Colace] 100 mg PO BID #20 cap 08/27/19 Hydrocodone Bitart/Apap 5-325 [[place] 5MG-325MG] 1 tab PO Q4H PRN PRN 5 Days #20 tab 08/27/19 Primary Care Physician: Tamiko Copeland MD [Primary Care Provider] - Test Results: Test results from this visit will be discussed in further detail at your follow- up appointment, if applicable. Please Follow Up With: Rodrigo Vargas MD When: in 2 weeks, please call to make an appointment.
--- NOTE | 2019-08-27 08:19 | DS.PCM_ITS ---
Discharge Date and Diagnosis Date of Admission: 08/24/19 Date of Discharge: 08/27/19 - Secondary Discharge Diagnosis Chronic Problems (Last Reviewed 03/04/19 @ 10:14 by Kia Randolph) Cardiomyopathy (Chronic) Presence of cardiac resynchronization therapy defibrillator ([employer]-D) (Chronic ~10/29/18) Essential hypertension (Chronic) Ischemic cardiomyopathy (Chronic) Hospital Course and Treatment Operations: - - Left radical nephrectomy Procedures: None Summary of Care Provided: The patient is a 79 year old male with a large left renal mass underwent a laparoscopic robotic assisted left radical nephrectomy, postoperative course was relatively unremarkable he did not pass gas or have flatus until postoperative day #3 but his abdomen is nice and soft he has been tolerating regular diet ambulating and he is ready for discharge. He has good urine output. - Physical Exam Vitals/I&O's: Vital Signs Temp Pulse Resp BP Pulse Ox 98.8 F 68 16 114/61 97 08/27/19 03:29 08/27/19 03:35 08/27/19 03:35 08/27/19 03:29 08/27/19 03:35 Oxygen Flow Rate (L/min) 2 Oxygen Delivery Method Room Air Weight: 89.9 kg Body Mass Index (BMI) 28.4 Intake and Output for Last 24 Hours 08/25/19 08/26/19 08/27/19 23:59 23:59 23:59 Intake Total 1933.75 / 2133.75 850 / 1260 460 / 460 Output Total 650 / 1050 675 / 675 Balance 1283.75 / 1083.75 175 / 585 460 / 460 General: Alert, Oriented x3, Cooperative HEENT: Atraumatic, PERRLA, EOMI, Normocephalic Neck: Supple, No JVD, Negative Carotid Bruits Lungs: Clear to auscultation, Normal air movement Cardiovascular: Regular rate, No murmurs Abdomen: Bowel Sounds Present, Soft, Non Tender Extremities: No edema, Capillary Refill Less than 3 Seconds Skin: No rashes, No breakdown Musculoskeletal: No Tenderness to Palpation of Joints or Extremities Neurological: Cranial nerves II-XII grossly intact Psych/Mental Status: Normal Affect, Appropriate Laboratory Results 08/19/19 10:28: Crossmatch See Detail Current Medications Acetaminophen (Tylenol) 500 mg PO Q4H PRN PRN PRN Reason: Pain Score 1-10/10 /Headache Last Admin: 08/26/19 23:32 Dose: 500 mg Documented by: Carvedilol (Coreg) 12.5 mg PO BID [facility] Last Admin: 08/26/19 21:53 Dose: 12.5 mg Documented by: Cholecalciferol (Vitamin [facility]) [facility] Last Admin: 08/26/19 10:34 Dose: 2,000 unit Documented by: Docusate Sodium (Colace) 100 mg PO BID [facility] Last Admin: 08/26/19 21:53 Dose: 100 mg Documented by: Enoxaparin Sodium (Lovenox) 40 mg SC DAILY@0600 [facility] Last Admin: 08/27/19 06:30 Dose: 40 mg Documented by: Furosemide (Lasix) 20 mg PO DAILY PRN PRN Reason: edema Hydralazine HCl (Apresoline Iv) 10 - 20 mg IV Q4H PRN PRN PRN Reason: SYS>150 DIST> 85 Losartan Potassium (Cozaar) 50 mg PO DAILY [facility] Last Admin: 08/26/19 10:34 Dose: 50 mg Documented by: Magnesium Hydroxide (Milk Of Magnesia) 15 ml PO DAILY [facility] Last Admin: 08/26/19 10:37 Dose: 15 ml Documented by: Morphine Sulfate () 2 mg IV Q4H PRN PRN PRN Reason: Pain Score 6-10/10 Last Admin: 08/24/19 16:40 Dose: 2 mg Documented by: Ondansetron HCl (Zofran) 4 mg IV Q6H PRN PRN PRN Reason: Nausea Last Admin: 08/26/19 21:39 Dose: 4 mg Documented by: Oxycodone HCl (Oxyir) 5 mg PO Q4H PRN PRN PRN Reason: Pain Score 1-10/10 Last Admin: 08/26/19 21:39 Dose: 5 mg Documented by: Pantoprazole Sodium (Protonix) 20 mg PO DAILY [facility] Last Admin: 08/26/19 10:34 Dose: 20 mg Documented by: Sodium Chloride () 10 ml IV PRN PRN PRN Reason: IV flush Last Admin: 08/26/19 21:53 Dose: 10 ml Documented by: Vitamin [facility] (Vitamin E) [facility] Last Admin: 08/26/19 10:34 Dose: 800 units Documented by: Discharge Diet: Light diet - advance as tolerated Discharge Activity: No Restrictions, May not drive while taking narcotic pain medications. Call your doctor if your incision/area has: Sudden Increased Bleeding Call your doctor if you observe: Uncontrolled pain Home Medications: Medications to take at Discharge Aspirin [Aspirin, Baby] 81 mg PO DAILY@0800 08/24/17 [place]-3 Fatty Acids/Fish Oil [[place] 3 Fish Oil Softgel] 1 ea PO DAILY 08/24/17 Vitamin E 800 units PO DAILY 08/24/17 Cholecalciferol (Vitamin D3) [Vitamin D3] 2,000 unit PO DAILY 10/30/18 furosemide 20 mg tablet 20 mg PO DAILY PRN #90 tab 08/08/19 Carvedilol 12.5 mg PO BID 08/24/19 Losartan Potassium 50 mg PO DAILY 08/24/19 Docusate Sodium [Colace] 100 mg PO BID #20 cap 08/27/19 Hydrocodone Bitart/Apap 5-325 [[place] 5MG-325MG] 1 tab PO Q4H PRN PRN 5 Days #20 tab 08/27/19 Following Prescrptions Were Given to Patient: Docusate Sodium [Colace] 100 mg PO BID #20 cap Prescription Printed Hydrocodone Bitart/Apap 5-325 [[place] 5MG-325MG] 1 tab PO Q4H PRN PRN 5 Days #20 tab PRN Reason: Pain Prescription Printed Primary Care Physician: Tamiko Copeland MD [Primary Care Provider] - Please Follow Up With: Rodrigo Vargas MD When: in 2 weeks, please call to make an appointment. Medical Necessity - Tobacco Use Smoking Status: Never smoker Meaningful Use Info Meaningful Use Diagnoses (Choose all that apply): None applicable
[2019-08-27] MEDS: Vitamin E 400 UNITS Capsule 800 UNITS PO (08:45)
[2019-08-27] MEDS: Docusate Sodium 100 MG Capsule PO (08:57)
[2019-08-27] MEDS: Pantoprazole Sodium 20 MG Tablet PO (08:58)
[2019-08-27] MEDS: Losartan Potassium 50 MG Tablet PO (08:59)
[2019-08-27] MEDS: Magnesium Hydroxide 30 ML UDC 15 ML PO (08:59)
[2019-08-27] MEDS: Carvedilol 12.5 MG Tablet PO (08:59)
[2019-08-27 09:30] VITALS: BP 156/82; PULSE 61; RESP 16; TEMP 36.4; O2SAT 96
[2019-08-27 11:30] VITALS: O2SAT 92
--- NOTE | 2019-08-27 13:54 | PN_ITS ---
Subjective: Patient is ready to go home. Been discharged by Dr. Vargas. Mild abdominal pain at operative site on movement. Move 2 times bowel movement which is semisolid to loose in consistency. Vitals/I&O's: Vital Signs Temp Pulse Resp BP Pulse Ox 97.6 F L 61 16 156/82 H 92 08/27/19 09:30 08/27/19 09:30 08/27/19 09:30 08/27/19 09:30 08/27/19 11:30 Oxygen Flow Rate (L/min) 2 Oxygen Delivery Method Room Air Weight: 198 lb 3.129 oz Body Mass Index (BMI) 28.4 Intake and Output for Last 24 Hours 08/25/19 08/26/19 08/27/19 23:59 23:59 23:59 Intake Total 1933.75 / 2133.75 850 / 1260 460 / 460 Output Total 650 / 1050 675 / 675 Balance 1283.75 / 1083.75 175 / 585 460 / 460 General: Alert, Oriented x3, Cooperative HEENT: Atraumatic, PERRLA, EOMI, Normocephalic Neck: Supple, No JVD, Negative Carotid Bruits Lungs: Clear to auscultation, Normal air movement, No rhonchi, No wheeze, No rales Cardiovascular: Regular rate, Regular Rhythm, Normal S1, Normal S2, No murmurs Abdomen: Bowel Sounds Present, Soft, Non-Distended, Tender - Mild tenderness over the operative site over left lower abdomen near the incision Extremities: No edema, Capillary Refill Less than 3 Seconds Skin: No rashes, No breakdown Musculoskeletal: No Tenderness to Palpation of Joints or Extremities Neurological: Cranial nerves II-XII grossly intact Psych/Mental Status: Normal Affect, Appropriate Laboratory Results 08/19/19 10:28: Crossmatch See Detail STROKE Vital Signs/Narrative: Vital Signs Pulse Ox 08/27/19 11:30 92 Medical Necessity - Tobacco Use Smoking Status: Never smoker Assessment/Plan All Active Problems (Last Reviewed 03/04/19 @ 10:14 by Kia Randolph) Systolic dysfunction (Acute) There is a 71-year-old gentleman who was admitted after he had left radical nephrectomy for large cystic left renal mass. Patient had laparoscopic robotic assisted left radical nephrectomy. Initially, patient abdominal pain was intense which was controlled and he did not moved bowel for a few days. Today he moved bowel on third postoperative. Patient is being discharged home. 1. Postoperative day #3 -status post left radical nephrectomy for large cystic left renal mass. 2. Hypertension- blood pressure is controlled 156/82. Patient on losartan 50 mg daily and carvedilol 12.5 mg daily. Patient also on Lasix 20 mg daily. Blood pressure was elevated yesterday which was controlled. 3. Cardiomyopathy with a 25 to 30% ejection fraction in January 2019. Stage I diastolic dysfunction. 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 BUN/creatinine stable, 36/1.83. Resumed on Lasix. Patient has CKD stage III probably secondary to chronic heart failure and diuretic 4. Mild hyponatremia-resolved 5. Constipation after surgery: Resolved. Patient is hemodynamically stable. Being discharged home. follow-up with urologist Dr. Vargas 1 week and PCP in 1 to 2 weeks. Code Visit Inpatient E&M: [id number] [facility] Hosp L2
== END 2019-08-27 12:19 | disposition home or self-care (01) | DRG 657 ==
LOC: ACINP 05:42 → MS3 11:48
PROVIDERS: Anesthesiology; Internal Medicine; Admitting Provider Urology; Referring Provider Urology; Visit Provider Internal Medicine
PROC: 0TT14ZZ Resection of Left Kidney, Percutaneous Endoscopic Approach (ICD-10-PCS; CPT 50546; principal; 2019-08-24 07:10)
DX: C64.2 Malignant neoplasm of left kidney, except renal pelvis (principal); E87.1 Hypo-osmolality and hyponatremia; I50.42 Chronic combined systolic (congestive) and diastolic (congestive) heart failure; N18.3 Chronic kidney disease, stage 3 (moderate); Z95.810 Presence of automatic (implantable) cardiac defibrillator; I25.5 Ischemic cardiomyopathy; I10 Essential (primary) hypertension
CPT/HCPCS: 36415; 80048; 80053; 82248; 83735; 85025; 85027; 85610; 85730; 86850; 86900; 86901; 86920; 88307; 93005; 97162; 97166; J7120; A4216; J2405

== ENCOUNTER → 2020-04-17 08:49 | Outpatient (CLI) | payer SELFPAY ==
[2020-03-21 11:34] VITALS: BMI 27.2
--- NOTE | 2020-04-17 08:51 | ECHOD_ITS ---
Reason For Study: CHF Procedure This was a 2D Doppler, Color Flow transthoracic echocardiogram. Exam performed in department. Left Ventricle Normal LV size. Mild concentric left ventricular hypertrophy. Moderate global left ventricular systolic dysfunction. The estimated ejection fraction is 30 %. Diastolic function is indeterminate. Right Ventricle Normal RV size. ICD or pacer leads identified within the right ventricle. Normal systolic function. Atria Normal left atrium. Normal right atrium. ICD or pacer leads identified within the right atrium. No doppler evidence for ASD. Mitral Valve There is no mitral annular calcification. Normal mitral valve. Trivial mitral valve insufficiency. Tricuspid Valve Normal tricuspid valve. Trivial tricuspid valve insufficiency. Aortic Valve Trisinus/trileaflet aortic valve. Mild diffuse aortic valve thickening. Mild focal aortic valve calcification. Pulmonic Valve The pulmonic valve is not well visualized. Mild-Moderate (1-2+) pulmonic valve insufficiency. Great Vessels The aortic root is not well visualized. Pericardium/Pleural No pericardial effusion. MMode/2D Measurements & Calculations LVIDd: 5.1 cm IVSd: 1.7 cm LA dimension: 3.7 cm LVIDs: 4.3 cm LVPWd: 1.3 cm FS: 16.0 % LAV(MOD-bp): 55.7 ml LVAd ap4: 42.8 cm2 SV(MOD-sp4): 46.3 ml LAV(MOD-bp) Indexed: 27.3 ml/m2 EDV(MOD-sp4): 167.4 ml LAV(MOD-sp2): 53.3 ml EDV(sp4-el): 172.0 ml LAV(MOD-sp4): 57.1 ml LVAs ap4: 33.6 cm2 ESV(MOD-sp4): 121.0 ml ESV(sp4-el): 118.9 ml EF(MOD-sp4): 27.7 % EF(sp4-el): 30.9 % SV(sp4-el): 53.1 ml LA A4 area: 19.9 cm2 RA A4 area: 14.9 cm2 Time Measurements MV dec time: 0.23 sec Doppler Measurements & Calculations MV E max gavin: 32.8 cm/sec Lat Peak E' Gavin: 2.6 cm/sec Med Peak E' Gavin: 5.4 cm/sec MV A max gavin: 83.0 cm/sec E/E' lat: 12.4 E/E' med: 6.1 MV E/A: 0.40 MV V2 max: 101.6 cm/sec MV P1/2t max gavin: 45.3 cm/sec Ao V2 max: 101.7 cm/sec MV max P.1 mmHg MV P1/2t: 88.5 msec Ao max P.1 mmHg MV V2 mean: 46.2 cm/sec MV mean P.1 mmHg MV dec slope: 149.9 cm/sec2 MV V2 VTI: 21.2 cm MVA(P1/2t): 2.5 cm2 LV V1 max: 76.3 cm/sec PA V2 max: 116.5 cm/sec PI end-d gavin: 83.8 cm/sec LV V1 max P.3 mmHg Interpretation Summary Moderate global left ventricular systolic dysfunction. The estimated ejection fraction is 30 %. Mild concentric left ventricular hypertrophy. Trivial mitral valve insufficiency. Trivial tricuspid valve insufficiency. Mild diffuse aortic valve thickening. Mild focal aortic valve calcification. Mild-Moderate (1-2+) pulmonic valve insufficiency. Diastolic function is indeterminate. ICD or pacer leads identified within the right atrium ICD or pacer leads identified within the right ventricle. Ordering Physician: Alfredo Garcia Referring Physician: Tamiko Copeland Performed By: Christopher Crowder RCS
== END ==
PROVIDERS: Referring Provider Internal Medicine Cardiovascular Disease; Visit Provider Internal Medicine Cardiovascular Disease
DX: I11.0 Hypertensive heart disease with heart failure (principal); I50.22 Chronic systolic (congestive) heart failure; I42.9 Cardiomyopathy, unspecified; Z95.810 Presence of automatic (implantable) cardiac defibrillator
CPT/HCPCS: 93306

== ENCOUNTER 2020-07-08 12:25 | Emergency (ER) | payer SELFPAY ==
[2020-05-03 10:23] VITALS: BMI 27.9
[2020-07-08 12:27] VITALS: BP 120/70; PULSE 60; RESP 18; TEMP 36.6; O2SAT 96; BMI 27.2
--- NOTE | 2020-07-08 12:58 | EKG12_ITS ---
Test Reason : SYNCOPE Blood Pressure : / mmHG Vent. Rate : 056 BPM Atrial Rate : 056 BPM P-R Int : 184 ms QRS Dur : 164 ms QT Int : 506 ms P-R-T Axes : 042 109 -04 degrees QTc Int : 488 ms Atrial-sensed ventricular-paced rhythm Abnormal ECG Confirmed by ADRIANA FAIR, TANG ([id number]), deputy editor in chief ANIKA MONTEMAYOR ([id number]) on 07/11/2020 9:49:26 AM Referred By: LORRI/AIDAN Confirmed By:TANG WRIGHT MD
--- NOTE | 2020-07-08 12:59 | ED.DCSUM_ITS ---
History of Present Illness Chief Complaint: Syncope Informant: Patient, Family Onset: Today Context: Gradual Onset Timing: Intermittent - x1, Lasts - sev min Quality: lightheaded, near-syncopal Current Severity: gone Maximum Severity: Severe Worsened by: standing up Relieved by: sitting down Associated Symptoms: none. Narrative: Patient was in religious today. While sitting, he started feeling lightheaded, he stood up and gradually got worse to the point of almost passing out but he did not lose consciousness. He did not have any associated chest discomfort, headache, shortness of breath, focal neurologic symptom, or vomiting. He states he had coffee and a sweet roll this morning for breakfast. He states overall he does not drink a lot of fluid, but has no specific reason to be dehydrated lately. No recent illness. Presents during the coronavirus national emergency declaration/pandemic, denies any history of COVID-19 or contact with anyone that he knows of who has had it. He has a pacer/AICD for a cardiomyopathy. He has never had a heart attack or stent that he knows of. He is on no anticoagulants. - Past Medical History (1) Systolic dysfunction Status: Chronic (2) Cardiomyopathy Status: Chronic (3) Chronic systolic (congestive) heart failure Status: Chronic (4) Essential hypertension Status: Chronic (5) Ischemic cardiomyopathy Status: Chronic Past Medical History - Allergies and Home Meds Allergies/Adverse Reactions: Allergies No Known Allergies Allergy (Verified 07/08/20 12:31) Primary Care Physician: Tamiko Copeland MD [NON-STAFF] - Alfredo Garcia MD [STAFF PHYSICIAN] - (This week, call for appointment) Doctors: Dr. Garcia - cardiology Lives: Spouse/ Significant Other Smoking Status: Never smoker Review of Systems General: Reports: Malaise. Denies: Chills, Fever, Sweats Eyes: Denies: Visual changes - bilaterally, Diplopia ENT: Denies: Rhinorrhea, Sore throat Cardiovascular: Denies: Chest pain, Palpitations Respiratory: Denies: Dyspnea, Cough, Dyspnea on exertion Gastrointestinal: Denies: Abdominal pain, Nausea, Vomiting, Diarrhea, Melena, Hematochezia Genitourinary: Denies: Dysuria, Hematuria, Frequency Musculoskeletal: Denies: Back pain, Extremity Pain Skin: Denies: Rash, Wounds Neurological: Denies: Headache, Weakness, Numbness Physical Exam Vital Signs/Narrative: Vital Signs Temp Pulse Resp BP Pulse Ox 07/08/20 12:27 97.8 F 60 18 120/70 96 Inital Vital Signs reviewed: Yes General: Well nourished, Well developed, No Acute Distress Head: Normocephalic, Atraumatic Eyes: Perrl, EOMI ENT: Moist mucous membranes, No rhinorrhea Neck: Supple, Nontender Cardiovascular: Regular rate, Regular rhythm, No murmurs Respiratory: No distress, CTA bilaterally, Chest nontender Abdomen: Soft, Nontender, Nondistended, Normal bowel sounds Back: Nontender, Normal Inspection. Negative for: CVA tenderness Extremities: Nontender, No edema Skin: Normal color, No rash, No Trauma Neurological: Alert, Oriented x3, Cranial nerves II-XII grossly intact, Normal Strength, Normal Sensation, Normal DTR Psychological: Normal affect, Normal Mood Diagnostic/Tx/Re-eval Laboratory Tests 07/08/20 07/08/20 07/08/20 Range/Units 16:30 13:20 13:20 WBC 9.9 (4.4-11.0) K/mm3 RBC 4.29 L (4.6-6.2) M/mm3 Hgb 12.7 L (13.0-16.5) g/dL Hct 38.5 L (40-54) % MCV 89.7 (80-94) fL MCH 29.6 (27.0-32.0) pg MCHC 33.0 (32-36) g/dL RDW Std Deviation 40.6 (35.1-43.9) fl RDW Coeff of Darrian 12.3 (11.6-14.6) % Plt Count 210 (150-450) K/mm3 MPV 9.8 (6.2-12.0) fl Immature Gran % (Auto) 0.600 (0.0-0.9) % Neut % (Auto) 82.9 H (47-70) % Lymph % (Auto) 5.7 L (19-41) % [place] % (Auto) 6.7 (0-10) % Eos % (Auto) 3.7 (0-5) % Baso % (Auto) 0.4 (0-1) % Absolute Neuts (auto) 8.2 H (2.0-7.7) X10^3/uL Absolute Lymphs (auto) 0.56 L (0.83-4.51) X10^3/uL Nucleated RBC % 0 (0-5) % Platelet Estimate ADEQUATE (ADEQ) RBC Morphology NORM C+C (NORM C&C) NORMAL Sodium 138 (136-145) mmol/L Potassium 4.7 (3.5-5.1) mmol/L Chloride 109 H (98-107) mmol/L Carbon Dioxide 24.0 (21.0-32.0) mmol/L Anion Gap 5 (5-15) BUN 32 H (7-18) mg/dL Creatinine 1.75 H (0.70-1.30) mg/dL Estim Creat Clear Calc 35.34 ml/min Est GFR (MDRD) Af Amer 49 L (>60) mL/min Est GFR (MDRD) Non-Af 40 L (>60) mL/min BUN/Creatinine Ratio 18.3 (10-20) RATIO Glucose 89 (74-106) mg/dL Calcium 8.6 (8.5-10.1) mg/dL Troponin I < 0.015 (<0.045) ng/mL Urine Color Straw (Yellow) Urine Clarity Clear (Clear) Urine pH 5.0 (5.0 - 8.0) Ur Specific [place] 1.015 (1.002-1.030) Urine Protein 15 H (Negative) mg/dl Urine Glucose (UA) Normal (Normal) mg/dl Urine Ketones Negative (Negative) mg/dl Urine Occult Blood Negative (Negative) /ul Urine Nitrite Negative (Negative) Urine Bilirubin Negative (Negative) mg/dL Urine Urobilinogen Normal (Normal) mg/dl Ur Leukocyte Esterase Negative (Negative) /ul - Rhythm Strip Rhythm Strip: Sinus Rhythm Rate: 56 Ectopy: None - EKG Initial EKG Interpretation: Sinus Rhythm - With ventricular pacing at 56, No Acute Injury Pattern Prior: Unchanged - Medical Decision Making Orthostatic vital signs normal. Patient was asymptomatic and did not have any recurrent symptoms or telemetry events except for intermittent pacing while in the emergency department. He wants to go home and does not want to be admitted to the hospital. He has a [employer] device, we queried it. There were no events today. As a matter of fact, he has an accelerometer in his biventricular pacer/AICD that has shown him to have very little physical activity in the past several months. Discussed with Dr. Okeefe, he is comfortable with the patient following up as an outpatient. ED Disposition - Plan for ED Patient: Disposition: Home or Assisted Living Diagnosis: Near syncope Instructions: ED Near-Fainting Uncertain Cause Referrals: Tamiko Copeland MD [NON-STAFF] - Alfredo Garcia MD [STAFF PHYSICIAN] - (This week, call for appointment)
[2020-07-08 13:25] LABS: Absolute Lymphocyte Count 0.56 X10^3/uL (0.83-4.51); Absolute Neutrophil Count 8.2 X10^3/uL (2.0-7.7); Basophil# 0.04 X10^3/uL; Basophil% 0.4 % (0-1); Eosinophil# 0.36 X10^3/uL; Eosinophils% 3.7 % (0-5); Hematocrit 38.5 % (40-54); Hemoglobin 12.7 g/dL (13.0-16.5); Lymphocyte # 0.56 X10^3/ul (4.0); Lymphocyte % 5.7 % (19-41); Mean Corpuscular Hgb 29.6 pg (27.0-32.0); Mean Corpuscular Volume 89.7 fL (80-94); Mean Platelet Vol. 9.8 fl (6.2-12.0); Monocyte# 0.66 X10^3/uL; Monocyte% 6.7 % (0-10); NRBC Flagged by Analyzer 0 % (0-5); Neutrophil # 8.17 X10^3/uL (2.7-7.7); Neutrophil % 82.9 % (47-70); POSITIVE DIFFERENTIAL YES; Platelet Count 210 K/mm3 (150-450); RBC Distribution Width CV 12.3 % (11.6-14.6); RBC Distribution Width SD 40.6 fl (35.1-43.9); Red Blood Count 4.29 M/mm3 (4.6-6.2); White Blood Count 9.9 K/mm3 (4.4-11.0)
[2020-07-08 13:26] LABS: Differential Indicated SCAN CRITERIA MET
[2020-07-08 13:44] LABS: Anion Gap 5 (5-15); BUN 32 mg/dL (7-18); BUN/Creat Ratio 18.3 RATIO (10-20); Calcium,Total 8.6 mg/dL (8.5-10.1); Chloride 109 mmol/L (98-107); Creatinine, Serum 1.75 mg/dL (0.70-1.30); EST Glomerular Filtration Rate 40 mL/min (>60); Est Glom Filt Rate - Afr Amer 49 mL/min (>60); Estimated Creatinine Clearance 35.34 ml/min; Glucose 89 mg/dL (74-106); Potassium 4.7 mmol/L (3.5-5.1); Sodium Level 138 mmol/L (136-145)
[2020-07-08 13:55] VITALS: BP 144/75; BP 158/85; BP 158/95; PULSE 60; PULSE 63
[2020-07-08 14:06] LABS: Platelet Estimate ADEQUATE (ADEQ)
[2020-07-08 14:07] LABS: Red Cell Morphology NORM C+C NORMAL (NORM C&C)
[2020-07-08 16:35] LABS: Mucous, Urine 0 SEEN /hpf (<or=2+); Red Blood Cells-Urine 0 SEEN /hpf (0-5); Squamous Epithelial Cells - UA 0 SEEN /hpf (0-5)
[2020-07-08 16:36] LABS: Color, Urine Straw (Yellow); Glucose, Dipstick Normal (Normal); Ketone-Dipstick Negative (Negative); Leukocyte Esterase-Dipstick Negative /ul (Negative); Nitrite-Dipstick Negative (Negative); Occult Blood-Urine Negative /ul (Negative); Protein-Dipstick 15 mg/dl (Negative); Specific Gravity, Urine 1.015 (1.002-1.030); Urine Bilirubin Dipstick Negative (Negative); Urine Clarity Clear (Clear); Urine Urobilinogen Normal (Normal)
[2020-07-08 16:43] LABS: Bacteria RARE /hpf (None Seen); White Blood Cells 0-5 SEEN /hpf (0-5)
[2020-07-08 17:00] VITALS: RESP 16
== END 2020-07-08 17:01 | disposition home or self-care (01) ==
PROVIDERS: Emergency Provider Emergency Medicine; PCP Orthopaedic Surgery
DX: R55 Syncope and collapse (principal); I11.0 Hypertensive heart disease with heart failure; I50.22 Chronic systolic (congestive) heart failure; I25.5 Ischemic cardiomyopathy; Z95.810 Presence of automatic (implantable) cardiac defibrillator
CPT/HCPCS: 80048; 81001; 84484; 85025; 93005; 96360; 99285; J7040; A4216

== ENCOUNTER → 2023-07-13 | Outpatient (CLI) | payer SELFPAY ==
[2023-07-13 15:14] LABS: Anion Gap 7 (5-15); BUN 29 mg/dL (7-18); Calcium,Total 8.6 mg/dL (8.5-10.1); Chloride 109 mmol/L (98-107); Creatinine, Serum 1.71 mg/dL (0.70-1.30); EST Glomerular Filtration Rate 41 mL/min (>60); Est Glom Filt Rate - Afr Amer 50 mL/min (>60); Glucose 97 mg/dL (74-106); Potassium 4.5 mmol/L (3.5-5.1); Sodium Level 137 mmol/L (136-145)
== END | disposition home or self-care (01) ==
LOC: LAB 14:08
PROVIDERS: PCP Orthopaedic Surgery; Referring Provider Physician Assistant Medical; Visit Provider Physician Assistant Medical
DX: I48.0 Paroxysmal atrial fibrillation (principal)
CPT/HCPCS: 36415; 80048

== ENCOUNTER → 2023-07-31 | Outpatient (CLI) | payer SELFPAY ==
--- NOTE | 2023-07-31 10:59 | ECHOD_ITS ---
Reason For Study: ISCH CMP Procedure This was a 2D Doppler, Color Flow transthoracic echocardiogram. Exam performed in department. Left Ventricle Normal LV size. Moderate concentric left ventricular hypertrophy. Mild global left ventricular systolic dysfunction. The left ventricular ejection fraction is 45 %. Stage 1 diastolic dysfunction. There is mild global hypokinesis of the left ventricle. Right Ventricle Normal RV size. ICD or pacer leads identified within the right ventricle. The right ventricle is normal in size, function, and thickness. Atria Normal left atrium. Normal right atrium. Mitral Valve Normal mitral valve. Tricuspid Valve Normal tricuspid valve. Aortic Valve Normal aortic valve. Trisinus/trileaflet aortic valve. Pulmonic Valve Normal pulmonic valve. Great Vessels Normal aortic root. The pulmonary artery is normal size. Inferior vena cava collapse with respiration. Pericardium/Pleural No pericardial effusion. MMode/2D Measurements & Calculations LVIDd: 4.8 cm IVSd: 1.3 cm Ao root diam: 3.6 cm LVIDs: 3.9 cm LVPWd: 1.3 cm FS: 19.0 % LAV(MOD-bp): 46.1 ml LVAd ap4: 31.5 cm2 SV(MOD-sp4): 48.6 ml LAV(MOD-bp) Indexed: 22.8 ml/m2 LVLd ap4: 8.1 cm LAV(MOD-sp2): 51.9 ml EDV(MOD-sp4): 99.4 ml LAV(MOD-sp4): 39.6 ml EDV(sp4-el): 103.5 ml LVAs ap4: 19.0 cm2 LVLs ap4: 6.5 cm ESV(MOD-sp4): 50.8 ml ESV(sp4-el): 47.2 ml EF(MOD-sp4): 48.9 % EF(sp4-el): 54.5 % SV(sp4-el): 56.4 ml LA A4 area: 15.7 cm2 LA dimension(2D): 3.8 cm RA A4 area: 11.4 cm2 TAPSE: 2.2 cm Time Measurements MV dec time: 0.20 sec Doppler Measurements & Calculations MV E max gavin: 28.5 cm/sec Lat Peak E' Gavin: 4.3 cm/sec Med Peak E' Gavin: 6.6 cm/sec MV A max gavin: 74.6 cm/sec E/E' lat: 6.7 E/E' med: 4.3 MV E/A: 0.38 MV V2 max: 79.3 cm/sec Ao V2 max: 98.2 cm/sec MV max P.5 mmHg MV dec slope: 147.1 cm/sec2 Ao max P.9 mmHg MV V2 mean: 34.0 cm/sec Ao V2 mean: 68.4 cm/sec MV mean P.63 mmHg Ao mean P.2 mmHg MV V2 VTI: 22.6 cm Ao V2 VTI: 21.3 cm AV (velocity ratio): 0.78 LV V1 max: 78.5 cm/sec PA V2 max: 119.9 cm/sec LV V1 max P.5 mmHg PA V2 mean: 76.3 cm/sec LV V1 mean P.3 mmHg LV V1 mean: 53.0 cm/sec LV V1 VTI: 16.6 cm ECHO/Echo Complete Interpretation Summary Normal LV size. Moderate concentric left ventricular hypertrophy. The left ventricular ejection fraction is 45 %. There is mild global hypokinesis of the left ventricle. Stage 1 diastolic dysfunction. Mild global left ventricular systolic dysfunction. Compared to previous study, the left ventricular systolic function has improved .. Ordering Physician: Kia La Referring Physician: Kia La Performed By: Omaira Bill RCS
== END | disposition home or self-care (01) ==
PROVIDERS: PCP Orthopaedic Surgery; Referring Provider Physician Assistant Medical; Visit Provider Physician Assistant Medical
DX: I25.5 Ischemic cardiomyopathy (principal); Z95.810 Presence of automatic (implantable) cardiac defibrillator
CPT/HCPCS: 93306

== ENCOUNTER → 2024-05-03 | Outpatient (CLI) | payer SELFPAY ==
--- NOTE | 2024-05-03 10:51 | RAD_ITS ---
STUDY: X-RAY - RIGHT KNEE REASON FOR EXAM: Male, 84 years old. OSTEOARTHRITIS TECHNIQUE: 4 views of the right knee. COMPARISON: None. FINDINGS: Normal visualized distal femur. Normal visualized proximal tibia and fibula. Normal proximal tibiofibular articulation. There is no demonstrated fracture. There is severe degenerative arthrosis of the medial femorotibial compartment with severe joint space narrowing. There is minimal degenerative arthrosis of the lateral femorotibial compartment. There is minimal degenerative arthrosis of the patellofemoral articulation. There is a moderate volume joint effusion. There are mild atherosclerotic calcifications. 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 Moderate joint effusion. Electronically Signed: Timothy Arriola MD at 12:56 EDT ,
--- NOTE | 2024-05-03 10:51 | RAD_ITS ---
STUDY: X-RAY - LEFT KNEE REASON FOR EXAM: Male, 84 years old. OSTEOARTHRITIS TECHNIQUE: 4 views of the left knee. COMPARISON: None. FINDINGS: Normal visualized distal femur. Normal visualized proximal tibia and fibula. Normal proximal tibiofibular articulation. There is no demonstrated fracture. There is moderate degenerative arthrosis of the medial femorotibial compartment with moderate joint space narrowing. There is mild degenerative arthrosis of the lateral femorotibial compartment. There is mild degenerative arthrosis of the patellofemoral articulation. There is a small to moderate joint effusion. There are mild atherosclerotic calcifications. RAD/Knee 4 or More Views IMPRESSION: Tricompartment degenerative arthrosis, most pronounced in the medial femorotibial compartment. Small to moderate joint effusion. No demonstrated fracture. Electronically Signed: Timothy Arriola MD at 12:58 EDT ,
[2024-05-03 12:20] LABS: Microalbumin:Creatinine Ratio 128.6 mg/g CRE (<30 mg/g CRE)
[2024-05-03 15:46] LABS: Absolute Lymphocyte Count 0.73 X10^3/uL (0.83-4.51); Absolute Neutrophil Count 5.6 X10^3/uL (2.0-7.7); Basophil# 0.05 X10^3/uL; Basophil% 0.7 % (0-1); Eosinophil# 0.34 X10^3/uL; Eosinophils% 4.6 % (0-5); Hematocrit 35.5 % (40-54); Hemoglobin 11.5 g/dL (13.0-16.5); Lymphocyte # 0.73 X10^3/ul (0.83-4.51); Lymphocyte % 9.8 % (19-41); Mean Corp Hgb Conc 32.4 g/dL (32-36); Mean Corpuscular Hgb 28.9 pg (27.0-32.0); Mean Corpuscular Volume 89.2 fL (80-94); Mean Platelet Vol. 11.6 fl (6.2-12.0); Monocyte# 0.69 X10^3/uL; Monocyte% 9.3 % (0-10); NRBC Flagged by Analyzer 0 % (0-5); Neutrophil # 5.58 X10^3/uL (2.7-7.7); Neutrophil % 75.1 % (47-70); Platelet Count 204 K/mm3 (150-450); RBC Distribution Width CV 13.9 % (11.6-14.6); RBC Distribution Width SD 45.9 fl (35.1-43.9); Red Blood Count 3.98 M/mm3 (4.6-6.2); White Blood Count 7.4 K/mm3 (4.4-11.0)
[2024-05-03 16:53] LABS: ALB/GLOB Ratio 0.8 RATIO (0.9-2.4); AST(SGOT) 19 U/L (15-37); Alanine Aminotransfer ALT/SGPT 24 U/L (16-61); Albumin, Serum 3.3 g/dL (3.2-5.0); Alkaline Phosphatase 76 U/L (45-117); Anion Gap 7 (5-15); BUN 46 mg/dL (7-18); Calcium,Total 8.6 mg/dL (8.5-10.1); Chloride 110 mmol/L (98-107); EST Glomerular Filtration Rate 24 mL/min (>60); Est Glom Filt Rate - Afr Amer 29 mL/min (>60); Globulin 4.1 g/dL (2.2-4.2); Glucose 87 mg/dL (74-106); PSA,Total - Annual Screen 1.73 ng/mL (0.00-4.00); Potassium 4.9 mmol/L (3.5-5.1); Protein, Total 7.4 g/dL (6.4-8.2); Sodium Level 138 mmol/L (136-145)
[2024-05-05 14:55] LABS: Vitamin B12 1197 pg/mL (211-911)
== END | disposition home or self-care (01) ==
LOC: MTLAB 10:49
PROVIDERS: PCP Family Medicine; Referring Provider Family Medicine; Visit Provider Family Medicine
DX: I42.0 Dilated cardiomyopathy (principal); N18.9 Chronic kidney disease, unspecified; Z12.5 Encounter for screening for malignant neoplasm of prostate; M17.10 Unilateral primary osteoarthritis, unspecified knee
CPT/HCPCS: 36415; 73564; 80053; 82043; 82570; 82607; 82746; 83880; 84153; 85025; G0103

== ENCOUNTER 2025-09-23 21:15 | Emergency (ER) | payer OTHER, SELFPAY ==
[2025-09-23 21:18] VITALS: BP 139/83; PULSE 57; RESP 16; TEMP 36.4; O2SAT 96; BMI 25.2
--- NOTE | 2025-09-23 21:48 | EKG12_ITS ---
Test Reason : Blood Pressure : */* mmHG Vent. Rate : 57 BPM Atrial Rate : 57 BPM P-R Int : 214 ms QRS Dur : 144 ms QT Int : 524 ms P-R-T Axes : 44 89 -8 degrees QTcB Int : 510 ms Atrial-sensed ventricular-paced rhythm with prolonged AV conduction Abnormal ECG Confirmed by MICHAEL FAIR, IOANA ([id number]), news editor SIM GUPTA ([id number]) on 09/25/2025 1:42:17 PM Referred By: Confirmed By: IOANA RODRIGUEZ MD
[2025-09-23 22:00] LABS: Hematocrit 32.5 % (40-54); Hemoglobin 10.9 g/dL (13.0-16.5); Immature Granulocytes Count 0.040 X10^3/uL (0.0-0.0); Mean Corp Hgb Conc 33.5 g/dL (32-36); Mean Corpuscular Volume 88.3 fL (80-94); Mean Platelet Vol. 11.3 fl (6.2-12.0); NRBC Flagged by Analyzer 0 % (0-5); Platelet Count 202 K/mm3 (150-450); RBC Distribution Width CV 14.4 % (11.6-14.6); RBC Distribution Width SD 46.2 fl (35.1-43.9); Red Blood Count 3.68 M/mm3 (4.6-6.2); White Blood Count 8.7 K/mm3 (4.4-11.0)
--- NOTE | 2025-09-23 22:04 | RAD_ITS ---
PROCEDURE: CHEST 1 VIEW (PORTABLE) 09/23/2025 REASON FOR EXAM: SYNCOPE TECHNIQUE: Frontal view of the chest. COMPARISON: CT dated 10/30/2018. FINDINGS: The lungs are clear. The cardiac silhouette is at the upper limit of normal in size. Left-sided cardiac pacemaker/AICD. No acute osseous abnormality. RAD/Chest 1 View (Portable) IMPRESSION: As above. Reading Location: [id number]
[2025-09-23 22:13] LABS: Troponin T High Sensitivity 39 ng/L (<=22)
[2025-09-23 22:15] LABS: AST(SGOT) 21 U/L (<=37); Alanine Aminotransfer ALT/SGPT 11 U/L (<=46); Albumin, Serum 3.5 g/dL (3.4-4.8); Alkaline Phosphatase 83 U/L (40-129); Anion Gap 10 (5-15); BUN 50 mg/dL (4-19); BUN/Creat Ratio 20.2 RATIO (10-20); Bilirubin, Direct 0.11 mg/dL (0.00-0.30); Calcium,Total 8.4 mg/dL (7.6-11.0); Carbon Dioxide 16.1 mmol/L (21.0-32.0); Chloride 111 mmol/L (98-108); Estimated Creatinine Clearance 22.89 ml/min (50-250); Globulin 2.4 g/dL (2.2-4.2); Glucose 157 mg/dL (70-99); Potassium 4.5 mmol/L (3.3-5.1)
[2025-09-23 22:16] VITALS: BP 142/80; PULSE 60; RESP 15; O2SAT 98
--- OUTSIDE RECORDS SUMMARY | 2025-09-23 22:47 | XMS RPT_ITS | CCD ---
Author Organization [facility] Care Team Providers Care Tram Operator Name Role Phone Dr. Bebo Ernst Primary Care Provider [phone]. Bebo Ernst Referring Provider Corinne Bah Attending Provider Unavailable MARY VALENTINO MD Admitting Unavailable MARY VALENTINO MD Primary Care Unavailable MARY VALENTINO MD Consulting Unavailable MARY VALENTINO MD Attending Unavailable PROVIDER, UNKNOWN Consulting Unavailable PROVIDER, UNKNOWN Consulting Unavailable PROVIDER, UNKNOWN Consulting Unavailable Yonis FAIR, Dr. Lagunas Primary Care Provider Nicki FAIR, Dr. Avila Attending Provider Dr. Bebo Somers MD Primary Care Provider Dr. Austin Caceres MD Attending Provider Yonis FAIR, Dr. Lagunas Referring Provider Corinne Bah Attending Provider Unavailable Somers, Bebo Referring Unavailable Nicki, [place] Attending Unavailable Somers, Bebo Primary Care Unavailable Somers, Bebo Primary Care Unavailable Nicki, [place] Attending Unavailable Yonis, Bebo Primary Care Unavailable Roof Luis Alfredo MITCHELL Attending Unavailable Somers, Bebo Referring Unavailable Nicki, [place] Attending Unavailable Somers, Bebo Primary Care Unavailable Nicki, [place] Attending Unavailable Somers, Bebo Primary Care Unavailable Nicki, [place] Attending Unavailable Somers, Bebo Primary Care Unavailable Nicki, Austin Attending Unavailable Somers, Bebo Primary Care Unavailable Yonis FAIR, Dr. Lagunas Primary Care Physician Dr. Austin Caceres MD Attending Physician Elroy SIGNAL MAINTAINER-CLuis Alfredo Attending Physician [phone] Medications Current Medications Medication Drug Class(es) Dates Sig (Normalized) Sig (Original) losartan potassium 25 mg oral tablet (20 sources) Angiotensin 2 Receptor Lovely Start: 08-14-2025 take 1 tablet by mouth once daily Losartan 25 mg tablet Active 25 mg PO DAILY 90 August 14, 2025 12:00am Complies with drug therapy Start: 08-27-2020 End: 07-12-2024 take 1 tablet by mouth twice daily Losartan 50 mg tablet Discontinued 50 mg PO TWICE A DAY 180 August 27, 2020 4:14pm July 12, 2024 1:15pm Check with primary doctor Start: 03-04-2019 End: 08-27-2020 take 1 tablet by mouth once daily Losartan 50 MG tablet Discontinued 50 mg PO DAILY August 24, 2019 6:16am August 27, 2020 4:15pm Check with primary doctor 24 hr metoprolol succinate 25 mg extended release oral tablet (5 sources) beta-Adrenergic Lovely Start: 08-14-2025 take 1 tablet by mouth once daily Metoprolol Succinate 25 mg tablet extended release 24 hr Active 25 mg PO DAILY 90 August 14, 2025 12:00am Complies with drug therapy Start: 08-11-2024 End: 08-14-2025 take 1 tablet by mouth once daily Metoprolol Succinate (Toprol Xl) 50 mg tablet extended release 24 hr Discontinued 50 mg PO daily 90 August 11, 2024 12:00am August 14, 2025 2:20pm pyridoxine (3 sources) Start: 07-12-2024 take 1 tablet by mouth once daily Pyridoxine (Vitamin B6) 50 mg tablet Active 50 mg PO daily July 12, 2024 12:00am ubidecarenone 100 mg oral capsule (5 sources) Start: 07-08-2020 take 10 capsules by mouth once daily Coenzyme Q10 100 MG capsule Active 100 mg PO DAILY July 08, 2020 12:00am Complies with drug therapy Completed/Discontinued Medications Medication Drug Class(es) Dates Sig (Normalized) Sig (Original) acetaminophen 325 mg / HYDROcodone bitartrate 5 mg oral tablet (5 sources) Opioid Agonist Start: 08-27-2019 End: 09-01-2019 Hydrocodone-Acetami nophen 1 TABLET tablet Discontinued 1 {tbl} PO EVERY 4 HOURS NEEDED as needed for Pain 20 5 0 August 27, 2019 August 31, 2019 12:00am September 01, 2019 12:11am Abnormal radiologic findings on diagnostic imaging of left kidney Start: 08-27-2019 End: 09-01-2019 take 1 tablet by mouth every four hours as needed Hydrocodone-Acetaminophen Discontinued 1 TABLET PO EVERY 4 HOURS NEEDED 21 03August 27, 2019 September 01, 2019 12:11am amLODIPine 5 mg oral tablet (14 sources) Dihydropyridine Calcium Channel Lovely Start: 07-13-2023 End: 08-11-2024 take 1 tablet by mouth once daily Amlodipine (Norvasc) 5 mg tablet Discontinued 5 mg PO DAILY 90 July 12, 2024 1:42pm August 11, 2024 12:59pm Start: 05-17-2018 End: 05-24-2018 take 1 tablet by mouth once daily Amlodipine 10 mg tablet Discontinued 10 mg PO daily May 17, 2018 12:00am May 24, 2018 10:41am apixaban 5 mg oral tablet (5 sources) Factor Xa Inhibitor Start: 07-13-2023 End: 07-12-2024 take 1 tablet by mouth twice daily Apixaban (Eliquis) 5 mg tablet Discontinued 5 mg PO TWICE A DAY 180 July 13, 2023 12:00am July 12, 2024 1:14pm aspirin 81 mg chewable tablet (5 sources) Platelet Aggregation Inhibitor, Nonsteroidal Anti-inflammatory Drug Start: 08-24-2017 End: 03-21-2020 take 1 tablet by mouth once daily Aspirin 81 MG tablet,chewable Discontinued 81 mg PO DAILY@0800 August 24, 2017 12:00am March 21, 2020 11:38am Check with primary doctor stopping 7 days prior to surgery atorvastatin 20 mg oral tablet (5 sources) HMG-CoA Reductase Inhibitor Start: 08-24-2017 End: 05-24-2018 take 1 tablet by mouth at bedtime Atorvastatin 20 MG tablet Discontinued 20 mg PO AT BEDTIME August 24, 2017 12:00am May 24, 2018 10:41am carvedilol 25 mg oral tablet (20 sources) alpha-Adrenergic Lovely, beta-Adrenergic Lovely Start: 04-19-2020 End: 04-19-2020 take 2 tablets by mouth twice daily Carvedilol 12.5 mg tablet Discontinued 25 mg PO TWICE A DAY April 19, 2020 4:09pm April 19, 2020 4:10pm Check with primary doctor Start: 04-19-2020 End: 04-19-2020 take 25 mg by mouth twice daily Carvedilol Discontinue d 25 MG PO TWICE A DAY April 19, 2020 4:09pm April 19, 2020 4:10pm Start: 04-19-2020 End: 07-12-2024 take 1 tablet by mouth twice daily at mealtime Carvedilol 25 mg tablet Discontinued 25 mg PO TWICE A DAY 180 3 August 20, 2020 1:52pm August 27, 2020 4:15pm must administer with a meal/food Start: 03-04-2019 End: 04-19-2020 take 1 tablet by mouth twice daily Carvedilol 12.5 mg tablet Discontinued 12.5 mg PO TWICE A DAY 180 3 June 08, 2019 2:45pm August 24, 2019 6:16am Start: 08-24-2017 End: 03-04-2019 take 1 tablet by mouth twice daily Carvedilol 3.125 MG tablet Discontinued 3.125 mg PO TWICE A DAY August 24, 2017 12:00am March 04, 2019 10:13am cholecalciferol 0.05 mg oral tablet (5 sources) Vitamin D Start: 10-30-2018 End: 07-12-2024 take 1 tablet by mouth once daily Cholecalciferol (Vitamin D3) 2,000 UNIT tablet Discontinued 2000 U PO DAILY October 30, 2018 1:00am July 12, 2024 1:15pm Check with primary doctor docusate sodium 100 mg oral capsule (5 sources) Start: 08-27-2019 End: 03-21-2020 take 1 capsule by mouth twice daily Docusate Sodium 100 MG capsule Discontinued 100 mg PO TWICE A DAY 20 0 August 27, 2019 12:00am March 21, 2020 11:39am furosemide 20 mg oral tablet (15 sources) Loop Diuretic Start: 03-04-2019 End: 02-27-2021 take 1 tablet by mouth once daily as needed Furosemide 20 mg tablet Discontinued 20 mg PO DAILY as needed July 07, 2019 1:57pm August 08, 2019 9:11am hydrALAZINE hydrochloride 25 mg oral tablet (12 sources) Arteriolar Vasodilator Start: 08-11-2024 End: 08-14-2025 take 1 tablet by mouth twice daily Hydralazine 25 mg tablet Discontinued 25 mg PO TWICE A DAY 60 3 August 11, 2024 2:32pm August 14, 2025 2:20pm Start: 07-12-2024 End: 08-11-2024 Hydralazine 25 mg tablet Discontinued 12.5 mg PO TWICE A DAY July 12, 2024 1:41pm August 11, 2024 2:33pm Start: 07-12-2024 End: 07-12-2024 take 1 tablet by mouth three times daily Hydralazine 25 mg tablet Discontinued 25 mg PO THREE TIMES A DAY July 12, 2024 12:00am July 12, 2024 1:42pm lisinopril 5 mg oral tablet (5 sources) Angiotensin Converting Enzyme Inhibitor Start: 08-24-2017 End: 06-07-2018 take 1 tablet by mouth once daily Lisinopril 5 MG tablet Discontinued 5 mg PO DAILY August 24, 2017 12:00am June 07, 2018 2:08pm [place]-3 Fatty Acids-Fish Oil (1 source) Start: 08-24-2017 End: 03-21-2020 [place]-3 Fatty Acids-Fish Oil Discontinued 1 EACH PO DAILY August 24, 2017 12:00am March 21, 2020 11:38am [place]-3 Fatty Acids-Fish Oil 1 EACH capsule,delayed release(DR/EC) (4 sources) Start: 08-24-2017 End: 03-21-2020 [place]-3 Fatty Acids-Fish Oil 1 EACH capsule,delayed release(DR/EC) Discontinued 1 NMA PO DAILY August 24, 2017 12:00am March 21, 2020 11:38am Check with primary doctor vitamin b6 50 mg oral tablet (1 source) Start: 07-12-2024 End: 08-14-2025 take 1 tablet by mouth once daily Pyridoxine (Vitamin B6) 50 mg tablet Discontinued 50 mg PO daily July 12, 2024 12:00am August 14, 2025 2:19pm vitamin e 180 mg oral capsule (5 sources) Start: 08-24-2017 End: 07-12-2024 Vitamin E (Dl, Acetate) 400 UNITS capsule Discontinued 800 U PO DAILY August 24, 2017 12:00am July 12, 2024 1:15pm Check with primary doctor Start: 08-24-2017 take 800 [IU] by walter th once daily Vitamin E (Dl, Acetate) Active 800 UNITS PO DAILY August 24, 2017 12:00am Problems Problem Classification Problem Date Documented Da te Episodic/Chronic Cardiac dysrhythmias (11 sources) Paroxysmal atrial fibrillation; Translations: [Paroxysmal atrial fibrillation] Onset: 08-14-2025 05-26-2023 Chronic Comment on above: Per PPM noted in May; Chronic kidney disease (1 source) Chronic kidney disease, stage 4 (severe); Translations: [Chronic kidney disease, stage 4 (severe)] Onset: 04-04-2025 Chronic Conduction disorders (11 sources) Cardiac defibrillator in situ; Translations: [Presence of automatic (implantable) cardiac defibrillator] Onset: 10-02-2018 08-24-2019 Chronic Congestive heart failure; nonhypertensive (9 sources) Chronic systolic heart failure; Translations: [Chronic systolic (congestive) heart failure] Onset: 07-18-2025 03-20-2020 Chronic Coronary atherosclerosis and other heart disease (11 sources) Ischemic myocardial dysfunction; Translations: [Ischemic cardiomyopathy] Onset: 07-18-2025 05-17-2018 Chronic Essential hypertension (12 sources) Essential hypertension; Translations: [Essential (primary) hypertension] 03-03-2019 Chronic Other and ill-defined heart disease (5 sources) Systolic dysfunction; Translations: [Heart disease, unspecified] 07-08-2020 Chronic Patti-; endo-; and myocarditis; cardiomyopathy (except that caused by tuberculosis or sexually transmitted disease) (9 sources) Cardiomyopathy; Translations: [Cardiomyopathy, unspecified] Onset: 07-18-2025 03-20-2020 Chronic Syncope (5 sources) Near syncope; Translations: [Syncope and collapse] 07-09-2020 Episodic Results Test Name Value Interpretation Reference Range Facility Cardiology Visit Reporton Cardiology Visit Report [facility] [address] [place] [address] OFFICE VISIT Date of Service: 08/14/25 MR#: [id number] Acct: [id number] Name: JUNIOR Chadwick ERNST Rep #: [id number] : 1940 Provider: TERRY patten Age/Sex: 85/M [place] [facility] [place]: Signed HPI HPI History of Present Illness Details: Junior Ernst is an 84 year-old white male with a history of a non-CAD related cardiomyopathy with ICD, chronic systolic CHF, hypertension, pericardial effusion status post pericardiocentesis, and TIA. In May 2023 his ICD interrogation had demonstrated demonstrated 22 AT/AF episodes with longest episode lasting 6 hours. His [id number] score is 6 (age +2, CHF, HTN, TIA). He follows with Dr. Lucy Arizmendi (PHONE: ) with [facility] in [facility]. He denies chest, arm, jaw, or neck discomfort. He denies palpitations. He denies bilateral lower extremity edema. He denies claudication. He denies shortness of breath with activity, shortness of breath at rest, orthopnea, or PND. He denies chronic cough. He denies significant, sudden weight gain. He denies lightheadedness, dizziness, near-syncope, or syncope. He denies blood in urine, blood in stool, or epistaxis. He denies fever with chills. He denies myalgia. He states fatigue. His exercise level has remained stable. He states sleep issues in which he wakes often to urinate. Intake Vital Signs 08/11/24 12:54 08/14/25 07:53 08/14/25 14:26 Height 5 ft 10 in 5 ft 10 in Weight: 177 lb BMI 25.4 BP 207/87 H 218/90 H Blood Pressure Location Rt brachial Lt brachial Position Sitting Sitting Respiration 18 Pulse 73 Pulse Source Monitor Pulse Oximetry (%) 97 Intake Visit Reasons: 1 Y FU Board Layer Required: No Is patient in pain?: No Allergies No Known Allergies Allergy (Verified 08/11/24 12:58) Medications ???Medication ???Instructions ???Recorded ???Confirmed ???Type coenzyme Q10 100 mg capsule 100 mg PO DAILY 07/08/20 08/14/25 History losartan 25 mg tablet 25 mg PO DAILY #90 tabs 08/14/25 1 Rx metoprolol succinate 25 mg 25 mg PO DAILY #90 tabs 08/14/25 1 Rx tablet,extended release 24 hr Ejection fraction %: 45 Have you fallen in the past year?: No PFSH Medical History Paroxysmal atrial fibrillation Chronic systolic (congestive) heart failure Cardiomyopathy TIA (transient ischemic attack) Presence of cardiac resynchronization therapy defibrillator (HEART DOCTOR-D) ( 10/29/18) Systolic dysfunction Hypertension Ischemic cardiomyopathy Surgical History History of tonsillectomy Family History Father CAD (coronary artery disease) Brother CAD (coronary artery disease) Social History Smoking Status: Never smoker alcohol intake: never substance use type: does not use ROS Const Const: Positive for fatigue; Negative for weakness, headache(s) or frequent falls Eyes Eyes: Negative for blurry vision ENT ENT: Negative for headache(s), dizziness or Nosebleed/epistaxis Cardio Chest Pain: No Palpitations: No Edema: Bilateral (occasional) and None Muscle aches with walking: None Resp Respiratory: Negative for SOB with activity, SOB at rest or SOB orthopnea SOB lying down GI GI: Negative nausea, vomiting, heartburn, bright, red blood in stools or black,tarry stools : Negative for hematuria Neuro Neuro: Negative for dizziness, lightheadedness, near syncope, syncope, frequent falls, headache(s), weakness or blurry vision Endo Endo: Positive for fatigue Cardiology Exam Const Appearance: cooperative, healthy appearing, no acute distress, well developed and well groomed Nutritional Appearance: well nourished and overweight Orientation: alert, awake and oriented x3 Head Head: normal to inspection, normocephalic and atraumatic Ears: hearing grossly normal bilaterally and external ears normal Nose: external nose normal, nares normal, nasal mucous membranes and turbinates normal, septum normal and no nasal discharge Face and Sinus: face symmetric Mouth: oral mucosae normal, tongue normal, oropharynx normal and moist mucous membranes Teeth and gingiva: dentition normal Throat: posterior oropharynx normal, tonsils normal and uvula midline Eyes General: appearance normal, both eyes and all related structures Eyelids: eyelids normal Conjunctivae: conjunctivae normal Pupils: PERRL, normal by confrontation and accommodation normal EOM: EOM intact bilaterally Neck Neck: normal visual inspection, trachea midline and no JVD JVD: +5 Carotids: normal carot (more content not included)... Normal [facility] Pacemaker Checkon 07-11-2025 Pacemaker Check [facility] [address] [place], [place] [address] Pacemaker Check Date of Service: 07/11/251518 MR#: [id number] Acct: [id number] Name: JUNIOR Chadwick ERNST Rep #: [id number] : 1940 From: Corinne Bah Age/Sex: 85/M [place] [facility] [place]: Signed Billing Codes ICD Device Billin ICD Dev Prog Eval, Multi Assessment and Plan Assessment and Plan (1) Paroxysmal atrial fibrillation: Status: Acute Comment: Per PPM noted in May 2023; (2) Chronic systolic (congestive) heart failure: Status: Chronic (3) Cardiomyopathy: Status: Chronic Qualifiers: Cardiomyopathy type: unspecified Qualified Code(s): I42.9 - Cardiomyopathy, unspecified (4) Presence of cardiac resynchronization therapy defibrillator (HEART DOCTOR-D): Status: Chronic (5) Ischemic cardiomyopathy: Status: Chronic 07/11/251518 Date Corinne Nunezderecklorenzo Signature: Date (if applicable) CC: Normal [facility] BCIDon 03-30-2024 Acinetobacter adriane-baumanii complex Not detected Normal Not Detected [facility] ([place]) Comment on above: Performed By: #### B RASHID #### [place] [address] Bacteroides fragilis Not detected Normal Not Detected [facility] ([place]) Comment on above: Performed By: #### B RASHID #### [place] [address] BCID Comment See Comment Normal [facility] ([place]) Comment on above: Result Comment: Anti microbial resistance can occur via multiple mechanisms. A Not Detected result for antimicrobial resistance gene(s) does not indicate antimicrobial susceptibility. Culture identification and susceptibility results to follow. If BCID panel was negative (Not Detected) for all targets, this does not exclude a blood stream infection. Our blood culture system detected growth. Culture identification and susceptibility testing (if appropriate) to follow. Performed By: #### B RASHID #### [place] [address] Neelima albicans Not detected Normal Not Detected [facility] ([place]) Comment on above: Performed By: #### B RASHID #### [place] [address] Neelima auris Not detected Normal Not Detected [facility] ([place]) Comment on above: Performed By: #### B RASHDI #### [place] [address] Neelima glabrata Not detected Normal Not Detected [facility] ([place]) Comment on above: Performed By: #### B RASHID #### [place] [address] Neelima krusei Not detected Normal Not Detected [facility] ([place]) Comment on above: Performed By: #### B RASHID #### [place] [address] Neelima parapsilosis Not detected Normal Not Detected [facility] ([place]) Comment on above: Performed By: #### B RASHID #### [place] [address] Neelima tropicalis Not detected Normal Not Detected Counts include 234 beds at the [facility] ([place]) Comment on above: Performed By: #### B RASHID #### [place] [address] Cryptococcus neoformans-gattii Not detected Normal Not Detected [facility] ([place]) Comment on above: Performed By: #### B RASHID #### [place] [address] CTX-M (ESBL) Not Applicable Normal Not Detected [facility] ([place]) Comment on above: Performed By: #### B RASHID #### [place] [address] E. Coli Not detected Normal Not Detected [facility] ([place]) Comment on above: Performed By: #### B RASHID #### [facility] [address] [place] [phone] Enterobacter cloacae Complex Not detected Normal Not Detected [facility] ([place]) Comment on above: Performed By: #### B RASHID #### [facility] [address] [place] [id number] Enterobacterales Not detected Normal Not Detected [facility] ([place]) Comment on above: Performed By: #### B RASHID #### [facility] [address] [place] [address] Enterococcus faecalis Not detected Normal Not Detected [facility] ([place]) Comment on above: Performed By: #### B RASHID #### [facility] [address] [place] [address] Enterococcus faecium Not detected Normal Not Detected [facility] ([place]) Comment on above: Performed By: #### B RASHID #### [facility] [address] [place] [address] Haemophilus influenzae Not detected Normal Not Detecte d [facility] ([place]) Comment on above: Performed By: #### B RASHID #### [facility] [address] [place] [address] IMP (Carbapenemase) Not Applicable Normal Not Detected [facility] ([place]) Comment on above: Performed By: #### B RASHID #### [facility] [address] [place] [phone] Klebsiella aerogenes Not detected Normal Not Detected [facility] ([place]) Comment on above: Performed By: #### B RASHID #### [facility] [address] [place], [place] [id number] Klebsiella oxytoca Not detected Normal Not Detected Counts include 234 beds at the [facility] ([place]) Comment on above: Performed By: #### B RASHID #### [facility] [address] [place], [place] [id number] Klebsiella pneumoniae group Not detected Normal Not Detected [facility] ([place]) Comment on above: Performed By: #### B RASHID #### [facility] [address] [place] [address]367 KPC (Carbapenemase) Not Applicable Normal Not Detected [facility] ([place]) Comment on above: Performed By: #### B RASHID #### [place] [address] Listeria monocytogenes Not detected Normal Not Detecte d [facility] ([place]) Comment on above: Performed By: #### B RASHID #### [place] [address] MCR-1 (Colistin Resistance) Not Applicable Normal Not Detected [facility] ([place]) Comment on above: Performed By: #### B RASHID #### [place] [address] Mec A/C Not detected Normal Not Detected [facility] ([place]) Comment on above: Performed By: #### B RASHID #### [place] [address] Mec A/C-MREJ (MRSA) Not Applicable Normal Not Detected [facility] ([place]) Comment on above: Performed By: #### B RASHID #### [place] [address] NDM (Carbapenemase) Not Applicable Normal Not Detected [facility] ([place]) Comment on above: Performed By: #### B RASHID #### [place] [address] Neisseria meningitidis (Encapsalated) Not detected Normal Not Detected [facility] ([place]) Comment on above: Performed By: #### B RASHID #### [place] [address] OXA-48 like (Carbapenemase) Not Applicable Normal Not Detected [facility] ([place]) Comment on above: Performed By: #### B RASHID #### [place] [address] Proteus Not detected Normal Not Detected [facility] ([place]) Comment on above: Performed By: #### B RASHID #### [place] [address] Pseudomonas aeruginosa Not detected Normal Not Detecte d [facility] ([place]) Comment on above: Performed By: #### B RASHID #### [place] [address] S. agalactiae Org specific cx Ql (Vag fld) Not detected Normal Not Detected [facility] ([place]) Comment on above: Performed By: #### B RASHID #### [facility] [address] [place] [address] Salmonella species Not detected Normal Not Detected Counts include 234 beds at the [facility] ([place]) Comment on above: Performed By: #### B RASHID #### [facility] [address] [place] [phone] Serratia marcescens Not detected Normal Not Detected [facility] ([place]) Comment on above: Performed By: #### B RASHID #### [facility] [address] [place] [phone] Staphylococcus Detected Abnormal Not Detected [facility] ([place]) Comment on above: Performed By: #### B RASHID #### [facility] [address] [place] [phone] Staphylococcus aureus Not detected Normal Not Detected [facility] ([place]) Comment on above: Result Comment: If S taphylococcus aureus is Detected, an Infectious Disease physician consult is required on identification. Performed By: #### B RASHID #### [facility] [address] [place] [phone] Staphylococcus epidermidis Detected Abnormal Not Detected [facility] ([place]) Comment on above: Performed By: #### B RASHID #### [address] [address] Staphylococcus lugdunensis Not detected Normal Not Detected [facility] ([place]) Comment on above: Performed By: #### B RASHID #### [facility] [address] [place] [address] Stenotrophomonas maltophilia Not detected Normal Not Detected [facility] ([place]) Comment on above: Performed By: #### B RASHID #### [facility] [address] [place] [id number] Streptococcus Not detected Normal Not Detected [facility] ([place]) Comment on above: Performed By: #### B RASHID #### [facility] [address] [place] [address] [phone] Streptococcus pneumoniae Not detected Normal Not Detected [facility] ([place]) Comment on above: Performed By: #### B RASHID #### [facility] [address] [place] [phone] Streptococcus pyogenes Not detected Normal Not Detecte d [facility] ([place]) Comment on above: Performed By: #### B RASHID #### [facility] [address] [place] [id number] Van A/B Not Applicable Normal Not Detected [facility] ([place]) Comment on above: Performed By: #### B RASHID #### [facility] [facility] [address] [place] [address] VIM (Carbapenemase) Not Applicable Normal Not Detected [facility] ([place]) Comment on above: Performed By: #### B RASHID #### [facility] [address] [place] [id number] Basophil percentageOrdered B y: Kia La on 07-13-2023 Chloride [Moles/Vol] 109 mmol/L 98-107 [facility] Glucose [Mass/Vol] 97 mg/dL 74-106 [facility] Potassium [Moles/Vol] 4.5 mmol/L 3.5-5.1 [facility] Sodium [Moles/Vol] 137 mmol/L 136-145 [facility] Laboratory - Chemistry and C hemistry - challengeOrdered By: Kia La on 07-13-2023 CO2 [Moles/Vol] 21.0 mmol/L 21.0-32.0 [facility] Urea nitrogen/Creatinine [Mass ratio] 17.0 mg/mg 10-20 [facility] No Panel InformationOrdered By: Kia La on 07-13-2023 Estimated GFR (MDRD) Amer 50 mL/min >60 [facility] Comment on above: GFR Calc Estimated GFR (MDRD) Non-Af Amer 41 mL/min >60 [facility] Comment on above: Non- GFR Calc Serum or plasma calcium richard urement (mass/volume)Ordered By: Kia La on 07-13-2023 Calcium [Mass/Vol] 8.6 mg/dL 8.5-10.1 [facility] Serum or plasma creatinine m easurement (mass/volume)Ordered By: Kia La on 07-13-2023 Creatinine [Mass/Vol] 1.71 mg/dL 0.70-1.30 [facility] Comment on above: The validity of the calculated GFR & GFRAA in patients over 70 years has not been determined. Clinical correlation is essential. Serum or plasma urea nitroge n measurement (mass/volume)Ordered By: Kia La on 07-13-2023 Urea nitrogen [Mass/Vol] 29 mg/dL 05-19 [facility] Thin prep Papanicolaou smear with manual screeningOrdered By: Kia La on 07-13-2023 Thin prep Papanicolaou smear with manual screening 03-16 [facility] Vital Signs Date Time Vital Sign Value Performing Clinician Faci lity 08-14-2025 14:26-0400 Diastolic blood pressure 90 mm[Hg] Dr. Bebo Somers MD Work Phone: [phone] [place] [address] 08-14-2025 14:26-0400 Systolic blood pressure 218 mm[Hg] Dr. Bebo Somers MD Work Phone: 2([phone] [place] [address] 08-14-2025 07:53-0400 Body height 177.[address] Bebo Somers MD Work Phone: [phone] [place] [address] 08-14-2025 07:53-0400 Body mass index (BMI) [Ratio] 25.4 kg/m2 Dr. Bebo Somers MD Work Phone: 0([phone] [address] 08-14-2025 07:53-0400 Body weight 80.[address] Bebo Somers MD Work Phone: 1(214)[phone] [place] [address] 08-14-2025 07:53-0400 Heart rate 73 /min Dr. Bebo Somers MD Work Phone: [facility] 08-14-2025 07:53-0400 Respiratory rate 18 /min Dr. Bebo Somers MD Work Phone: [facility] 08-14-2025 07:53-0400 SaO2% (BldA) [Mass fraction] 97 % Dr. Bebo Somers MD Work Phone: [facility] 07-13-2023 13:09-0400 Body height 177.[address] Bebo Ernst Work Phone: [facility] 07-13-2023 13:09-0400 Body mass index (BMI) [Ratio] 26.9 kg/m2 Dr. Bebo Ernst Work Phone: [facility] 07-13-2023 13:09-0400 Body weight 85.[address] Bebo Ernst Work Phone: [facility] 07-13-2023 13:09-0400 Diastolic blood pressure 95 mm[Hg] Dr. Bebo Ernst Work Phone: [facility] 07-13-2023 13:09-0400 Heart rate 58 /min Dr. Bebo Ernst Work Phone: [facility] 07-13-2023 13:09-0400 Respiratory rate 18 /min Dr. Bebo Ernst Work Phone: [facility] 07-13-2023 13:09-0400 SaO2% (BldA) [Mass fraction] 97 % Dr. Bebo Ernst Work Phone: [facility] 07-13-2023 13:09-0400 Systolic blood pressure 172 mm[Hg] Dr. Bebo Ernst Work Phone: [facility] Encounters Encounter Date Encounter Type Care Provider Facility Start: 08-14-2025 End: 08-14-2025 Patient encounter procedure Luis Alfredo STEWART -[facility] Work Phone: Start: 08-14-2025 End: 08-14-2025 ambulatory Bebo Somers Facility:[facility] Start: 07-11-2025 End: 07-11-[address] Bebo Somers MD Work Phone: -[facility] Start: 07-11-2025 End: 07-11-2025 Patient encounter procedure Corinne Bah -[facility] Work Phone: Start: 05-19-2025 End: 05-19-[address] Bebo Somers MD Work Phone: [facility] Start: 05-19-2025 End: 05-19-[address] Austin Caceres MD -[facility] Work Phone: Start: 04-04-2025 ambulatory MARY Johnson [facility] Start: 02-17-2025 End: 02-17-2025 ambulatory [place] Nicki Facility:[facility] Start: 02-17-2025 End: 02-17-[address] Austin Caceres MD -[facility] Work Phone: Start: 11-18-2024 End: 11-18-2024 ambulatory Austin Nicki Facility:[facility] Start: 08-19-2024 End: 08-19-2024 ambulatory Austin Nicki Facility:[facility] Start: 07-13-2023 End: 07-13-[address] Bebo Ernst Work Phone: [facility] Work Phone: Start: 07-13-2023 End: 07-13-[address] Bebo Ernst Work Phone: [facility] Work Phone: Start: 07-13-2023 End: 07-13-[address] Bebo Ernst Work Phone: [facility] Work Phone: Plan of Treatment Date Care Activity Detail Author Start: 08-14-2025 End: 08-14-2025 Evaluation of diagnostic study results [facility] US Heart [facility] Payers Date Payer Category Payer Self-pay [id number] Unknown [id number] Unknown [id number] 2.16.8 [id number] Unknown [id number] 2.16.8 [id number] Unknown [id number] 2.16.8 [id number] Unknown [id number] 2.16.8 [id number] Unknown [id number] 2.16.8 [id number] Unknown [id number] 2.16.8 [id number] Unknown [id number] 2.16.8 [id number] Unknown Social History Date Type Detail Facility Start: 07-13-2023 Tobacco smoking status NHIS Unknown if ever smoked [facility] Start: 07-08-2020 Spouse/ Signif icant Other [facility] Start: 1940 Sex Assigned At Male [facility] Start: 07-13-2023 Tobacco smoking status NHIS Never smoked tobacco (finding) [facility] Sex Male [facility] Medical Equipment Procedure Code Equipment Code Equipment Origin al Text Equipment Identifier Dates Robot-assisted simple nephrectomy CLIP,HEMMARIALUISA RECIO FDA Start: 08-24-2019 Robot-assisted simple nephrectomy CLIP,HEMMARIALUISA RECIO FDA Start: 08-24-2019 Robot-assisted simple nephrectomy CLIP,HEMMARIALUISA RECIO FDA Start: 08-24-2019 Robot-assisted simple nephrectomy CLIP,HEMMARIALUISA RECIO FDA Start: 08-24-2019 Robot-assisted simple nephrectomy CLIP,HEMMARIALUISA RECIO FDA Start: 08-24-2019 Robot-assisted simple nephrectomy CLIP,HEMMARIALUISA RECIO FDA Start: 08-24-2019 Robot-assisted simple nephrectomy SEALANT,FLOSEAL HEMOSTATIC 5ML FDA Start: 08-24-2019 Robot-assisted simple nephrectomy CLIP,HEMOLOCK ANUP RECIO FDA Start: 08-24-2019 Robot-assisted simple nephrectomy CLIP,HEMOLOCK ANUP RECIO FDA Start: 08-24-2019 Robot-assisted simple nephrectomy CLIP,HEMMARIALUISA RECIO FDA Start: 08-24-2019 Robot-assisted simple nephrectomy CLIP,HEMOLOKENNETH RECIO FDA Start: 08-24-2019 Robot-assisted simple nephrectomy CLIP,HEMMARIALUISA RECIO FDA Start: 08-24-2019 Robot-assisted simple nephrectomy CLIP,HEMMARIALUISA RECIO FDA Start: 08-24-2019 Robot-assisted simple nephrectomy SEALANT,FLOSEAL HEMOSTATIC 5ML FDA Start: 08-24-2019 Robot-assisted simple nephrectomy CLIP,HEMOLOCK LG WECK FDA Start: 08-24-2019 Robot-assisted simple nephrectomy CLIP,HEMOLOCK LG WECK FDA Start: 08-24-2019 Robot-assisted simple nephrectomy CLIP,HEMOLOCK LG WECK FDA Start: 08-24-2019 Robot-assisted simple nephrectomy CLIP,HEMOLOCK LG WECK FDA Start: 08-24-2019 Robot-assisted simple nephrectomy CLIP,HEMOLOCK LG WECK FDA Start: 08-24-2019 Robot-assisted simple nephrectomy CLIP,HEMOLOCK LG WECK FDA Start: 08-24-2019 Robot-assisted simple nephrectomy SEALANT,FLOSEAL HEMOSTATIC 5ML FDA Start: 08-24-2019 Robot-assisted simple nephrectomy CLIP,HEMOLOCK LG WECK FDA Start: 08-24-2019 Robot-assisted simple nephrectomy CLIP,HEMOLOCK LG WECK FDA Start: 08-24-2019 Robot-assisted simple nephrectomy CLIP,HEMOLOCK LG WECK FDA Start: 08-24-2019 Robot-assisted simple nephrectomy CLIP,HEMOLOCK LG WECK FDA Start: 08-24-2019 Robot-assisted simple nephrectomy CLIP,HEMOLOCK LG WECK FDA Start: 08-24-2019 Robot-assisted simple nephrectomy CLIP,HEMOLOCK LG WECK FDA Start: 08-24-2019 Robot-assisted simple nephrectomy SEALANT,FLOSEAL HEMOSTATIC 5ML FDA Start: 08-24-2019 Robot-assisted simple nephrectomy CLIP,HEMOLOCK LG WECK FDA Start: 08-24-2019 Robot-assisted simple nephrectomy CLIP,HEMOLOCK LG WECK FDA Start: 08-24-2019 Robot-assisted simple nephrectomy CLIP,HEMOLOCK LG WECK FDA Start: 08-24-2019 Robot-assisted simple nephrectomy CLIP,HEMOLOCK LG WECK FDA Start: 08-24-2019 Robot-assisted simple nephrectomy CLIP,HEMOLOCK LG WECK FDA Start: 08-24-2019 Robot-assisted simple nephrectomy CLIP,HEMOLOCK LG WECK FDA Start: 08-24-2019 Robot-assisted simple nephrectomy SEALANT,FLOSEAL HEMOSTATIC 5ML FDA Start: 08-24-2019 Ampila MRI Quad CDT-D FDA Start: 10-28-2018 Lead 1- Medtroni c CapsureFix Novus FDA Start: 10-28-2018 Lead 2- Medtroni c Attain Performa FDA Start: 10-28-2018 Lead 3-Medtronic Sprint Quattro Secure S FDA Start: 10-28-2018 Ampila MRI Quad CDT-D FDA Start: 10-28-2018 Lead 1- Medtroni c CapsureFix Novus FDA Start: 10-28-2018 Lead 2- Medtroni c Attain Performa FDA Start: 10-28-2018 Lead 3-Medtronic Sprint Quattro Secure S FDA Start: 10-28-2018 Ampila MRI Quad CDT-D FDA Start: 10-28-2018 Lead 1- Medtroni c CapsureFix Novus FDA Start: 10-28-2018 Lead 2- Medtroni c Attain Performa FDA Start: 10-28-2018 Lead 3-Medtronic Sprint Quattro Secure S FDA Start: 10-28-2018 Ampila MRI Quad CDT-D FDA Start: 10-28-2018 Lead 1- Medtroni c CapsureFix Novus FDA Start: 10-28-2018 Lead 2- Medtroni c Attain Performa FDA Start: 10-28-2018 Lead 3-Medtronic Sprint Quattro Secure S FDA Start: 10-28-2018 Ampila MRI Quad CDT-D FDA Start: 10-28-2018 Lead 1- Medtroni c CapsureFix Novus FDA Start: 10-28-2018 Lead 2- Medtroni c Attain Performa FDA Start: 10-28-2018 Lead 3-Medtronic Sprint Quattro Secure S FDA Start: 10-28-2018 Progress note 08-14-2025 Note Date & Type Note Facility 08-14-2025 Progress note [facility] Progress note 08-14-2025 Note Date & Type Note Facility 08-14-2025 Progress note Note Date/Time August 14, 2025 3:01pm [facility] [address] [place] [address]. [address] [place] [address] OFFICE VISIT Date of Service: 08/14/25 MR#: [id number] Acct: [id number] Name: JUNIOR Chadwick ERNST Rep #: [id number] : 1940 Provider: TERRY Abbasi Age/Sex: 85/M Location: [facility] Status: Signed HPI HPI History of Present Illness Details: Junior Ernst is an 84 year-old white male with a history of a non-CAD related cardiomyopathy with ICD, chronic systolic CHF, hypertension, pericardial effusion status post pericardiocentesis, and TIA. In May 2023 his ICD interrogation had demonstrated demonstrated 22 AT/AF episodes with longest episode lasting 6 hours. His [id number] score is 6 (age +2, CHF, HTN, TIA). He follows with Dr. Lucy Arizmendi (PHONE: ) with [facility] in [facility]. He denies chest, arm, jaw, or neck discomfort. He denies palpitations. He denies bilateral lower extremity edema. He denies claudication. He denies shortness of breath with activity, shortness of breath at rest, orthopnea, or PND. He denies chronic cough. He denies significant, sudden weight gain. He denies lightheadedness, dizziness, near-syncope, or syncope. He denies blood inurine, blood in stool, or epistaxis. He denies fever with chills. He denies myalgia. He states fatigue. His exercise level has remained stable. He states sleep issues in which he wakes often to urinate. Intake Vital Signs 08/11/24 12:54 08/14/25 07:53 08/14/25 14:26 Height 5 ft 10 in 5 ft 10 in Weight: 177 lb BMI 25.4 BP 207/87 H 218/90 H Blood Pressure Location Rt brachial Lt brachial Position Sitting Sitting Respiration 18 Pulse 73 Pulse Source Monitor Pulse Oximetry (%) 97 Intake Visit Reasons: 1 Y FU Board Layer Required: No Is patient in pain?: No Allergies No Known Allergies Allergy (Verified 08/11/24 12:58) Medications ?Medication ?Instructions ?Recorded ?Confirmed ?Type coenzyme Q10 100 mg capsule 100 mg PO DAILY 07/08/20 1 History losartan 25 mg tablet 25 mg PO DAILY #90 tabs 08/0208/14/25 Rx metoprolol succinate 25 mg 25 mg PO DAILY #90 tabs 08/14/25 Rx tablet,extended release 24 hr Ejection fraction %: 45 Have you fallen in the past year?: No [facility] Medical History Paroxysmal atrial fibrillation Chronic systolic (congestive) heart failure Cardiomyopathy TIA (transient ischemic attack) Presence of cardiac resynchronization therapy defibrillator (HEART DOCTOR-D) (~10/29/18) Systolic dysfunction Hypertension Ischemic cardiomyopathy Surgical History History of tonsillectomy Family History Father CAD (coronary artery disease) Brother CAD (coronary artery disease) Social History Smoking Status: Never smoker alcohol intake: never substance use type: does not use ROS Const Const: Positive for fatigue; Negative for weakness, headache(s) or frequent falls Eyes Eyes: Negative for blurry vision ENT ENT: Negative for headache(s), dizziness or Nosebleed/epistaxis Cardio Chest Pain: No Palpitations: No Edema: Bilateral (occasional) and None Muscle aches with walking: None Resp Respiratory: Negative for SOB with activity, SOB at rest or SOB orthopnea\SOB lying down GI GI: Negative nausea, vomiting, heartburn, bright, red blood in stools or black,tarry stools : Negative for hematuria Neuro Neuro: Negative for dizziness, lightheadedness, near syncope, syncope, frequent falls, headache(s), weakness or blurry vision Endo Endo: Positive for fatigue Cardiology Exam Const Appearance: cooperative, healthy appearing, no acute distress, well developed and well groomed Nutritional Appearance: well nourished and overweight Orientation: alert, awake and oriented x3 Head Head: normal to inspection, normocephalic and atraumatic Ears: hearing grossly normal bilaterally and external ears normal Nose: external nose normal, nares normal, nasal mucous membranes and turbinates normal, septum normal and no nasal discharge Face and Sinus: face symmetric Mouth: oral mucosae normal, tongue normal, oropharynx normal and moist mucous membranes Teeth and gingiva: dentition normal Throat: posterior oropharynx normal, tonsils normal and uvula midline Eyes General: appearance normal, both eyes and all related structures Eyelids: eyelids normal Conjunctivae: conjunctivae normal Pupils: PERRL, normal by confrontation and accommodation normal EOM: EOM intact bilaterally Neck Neck: normal visual inspection, trachea midline and no JVD JVD: +5 Carotids: normal carotid upstroke and bounding pulses Chest Chest inspection: normal inspection of the chest, symmetric chest movement and normal respiratory effort Auscultation: Bilateral: Clear to Auscultation Cardio Palpation: normal PMI Rate: regular rate Rhythm: regular rhythm Heart sounds: S1 normal, S2 normal and normal, physiologic split S2; Negative rub, gallop or murmur GI GI: normal to inspection, soft, no hepatosplenomegaly and bowel sounds present Neuro General: patient alert, patient awake, patient oriented x3, gait normal, moves all extremities and no focal sensory deficit Skin Skin: no rashes or lesions noted Extremities Pulses: Normal: Right Posterior Tibial Pulse, Left Posterior Tibial Pulse, RightRadial Pulse and Left Radial Pulse Lower Extremity Edema: None: Bilateral Musculoskel Musculoskeletal: No joint tenderness Psych Psychological: normal affect Supplemental Info Supplemental Information Echocardiogram 07/31/2023: Normal LV size. Moderate concentric left ventricular hypertrophy. The left ventricular ejection fraction is 45 %. There is mild global hypokinesis of the left ventricle. Stage 1 diastolic dysfunction. Mild global left ventricular systolic dysfunction. Compared to previous study, the left ventricular systolic function has improved. Echocardiogram from 04/17/2020: Interpretation Summary Moderate global left ventricular systolic dysfunction. The estimated ejection fraction is 30 %. Mild concentric left ventricular hypertrophy. Trivial mitral valve insufficiency. Trivial tricuspid valve insufficiency. Mild diffuse aortic valve thickening. Mild focal aortic valve calcification. Mild-Moderate (1-2+) pulmonic valve insufficiency. Diastolic function is indeterminate. ICD or pacer leads identified within the right atrium ICD or pacer leads identified within the right ventricle. Stress Test 08/14/17 Impression: 1. Rest and stress SPECT cardiac nuclear imaging demonstrate myocardial perfusion changes compatible with physiologic apical thinning with no myocardialperfusion changes consider diagnostic for associated stress-induced myocardial ischemia or previous myocardial injury/infarction. 2. Rest and stress SPECT current nuclear imaging done straight myocardial perfusion changes appearing compatible with left ventricular dilatation. 3. The gated Cardiolite study reports an LVEF of 17%. Labs: LDL Cholesterol, (0-130) 128 mg/dL HDL Cholesterol, (40-) 45 mg/dL Cholesterol, (200) 198 mg/dL Triglycerides, (-199) 126 mg/dL Diagnostics: Electrocardiogram Echocardiogram Stress Test Stress Test Nuclear Medicine Pacemaker Check Chest X-Ray Chest CTA Past Visits: Cardiology Visit Today Assessment and Plan Assessment and Plan (1) Paroxysmal atrial fibrillation: Status: Acute Comment: Per PPM noted in May 2023; Plan: Patient is no longer on Eliquis. 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 Will continue to monitor with his ICD interrogations. (2) Ischemic cardiomyopathy: Status: Chronic Plan: Echocardiogram from July 2023 demonstrates an ejection fraction of 45%. Heis paced 96% of the time. He has discontinued medication since last office visit. With his reduced LV function and elevated blood pressure, will reinitiate medications. He states with hydralazine he did not feel well and does not wish to resume. He wishes also to resume metoprolol at a lower dose than previous. He states that he will monitor his blood pressure at home and contact our office with an update. The importance of medications and blood pressure control discussed in detail today. He acknowledged understanding. (3) Presence of cardiac resynchronization therapy defibrillator (HEART DOCTOR-D): Status: Chronic Plan: Device has not demonstrated any episodes of atrial fibrillation. Will continue to monitor. (4) Essential hypertension: Status: Chronic Plan: This is elevated today in office. He states that he has stopped medications. We will reinitiate medications as described above. Twelve-lead ECG on 08/14/2025 was shows ventricular paced rhythm. He will monitor blood pressure and contact our office with an update. We will see him back after he returns from [place] to assess overall progress. Orders: Orders 12 Lead EKG performed by [facility] Today I48.0 - Paroxysmal atrial fibrillation Medications: New losartan 25 mg PO DAILY 90 tabs 3RF metoprolol succinate ER 25 mg PO DAILY 90 tabs 3RF Plan Details Follow Up: March 2025 (SIGNAL MAINTAINER/PA & Sharla) Coding Level of Care Code Off vis,est,level 4 Diagnoses Paroxysmal atrial fibrillation I48.0 Ischemic cardiomyopathy I25.5 Presence of cardiac resynchronization therapy defibrillator (HEART DOCTOR-D) Z95.810 Essential hypertension I10 Coding Level of Care Code Off vis,est,level 4 Diagnoses Paroxysmal atrial fibrillation I48.0 Ischemic cardiomyopathy I25.5 Presence of cardiac resynchronization therapy defibrillator (HEART DOCTOR-D) Z95.810 Essential hypertension I10 Clinical Quality Measures Falls Risk Screening/Assistive Devices Have you fallen in the past year?: No Cardiac Ejection fraction %: 45 08/14/25 1628 <Electronically signed by Luis Alfredo Boudreaux NP-C> Date _ Luis Alfredo Abbasi NP SIGNAL MAINTAINER-C Cosigner Signature: Date (if applicable) CC: Dr. Bebo Somers MD ~ [facility] Work Phone: Procedure note 07-11-2025 Note Date & Type Note Facility 07-11-2025 Procedure note [facility] Evaluation note 07-11-2025 Note Date & Type Note Facility 07-11-2025 Evaluation note Diagnosis Onset Date Resolution Paroxysmal atrial fibrillation acute July 11, 2025 12:42pm Cardiomyopathy chronic July 11, 2025 12:42pm Chronic systolic (congestive) heart failure chronic July 11, 2025 12:42pm Ischemic cardiomyopathy chronic S eptember 2024 12:42pm Presence of cardiac resynchronization therapy defibrillator (HEART DOCTOR-D) October,July 11, 2025 12:42pm [facility] Work Phone: Evaluation note 07-11-2025 Note Date & Type Note Facility 07-11-2025 Evaluation note Diagnosis Onset Date Resolution Paroxysmal atrial fibrillation acute July 11, 2025 12:42pm Cardiomyopathy chronic July 11, 2025 12:42pm Chronic systolic (congestive) heart failure chronic July 11, 2025 12:42pm Ischemic cardiomyopathy chronic S eptember 2024 12:42pm Presence of cardiac resynchronization therapy defibrillator (HEART DOCTOR-D) October,July 11, 2025 12:42pm Paroxysmal atrial fibrillation acute August 14, 2025 2:05pm Essential hypertension chronic Oc tober 2024 2:05pm Ischemic cardiomyopathy chronic O ctober 2024 2:05pm Presence of cardiac resynchronization therapy defibrillator (HEART DOCTOR-D) October, chronic August 14, 2025 2:05pm [facility] Work Phone: Clinical Note 04-03-2024 Note Date & Type Note Facility 04-03-2024 Note . MICRO - Microbiology PROCEDURE: Blood Culture (bacterial) [*1] SOURCE: Blood BODY SITE: COLLECTED DATE/TIME: 03/29/2024 09:44 EDT RECEIVED DATE/TIME: 03/29/2024 15:35 EDT START DATE/TIME: 03/29/2024 15:36 EDT FREE TEXT SOURCE: FINAL REPORTS Final Report [] Verified Date/Time/Personnel: 04/03/2024 15:59 EDT Blood Culture: No Growth at 5 days. PRELIMINARY REPORTS Preliminary Report [] Verified Date/Time/Personnel: 03/29/2024 16:59 EDT Culture has been received in lab and is no growth to date. Routine cultures are held for 5 days. Performing Locations *1: This test was performed at: [facility], [address] [place] [address], [address] [place] [address] ([place]) Clinical Note 04-02-2024 Note Date & Type Note Facility 04-02-2024 Note . MICRO - Microbiology PROCEDURE: Blood Culture (bacterial) [*1] SOURCE: Blood BODY SITE: COLLECTED DATE/TIME: 03/29/2024 09:05 EDT RECEIVED DATE/TIME: 03/29/2024 15:36 EDT START DATE/TIME: 03/29/2024 15:36 EDT FREE TEXT SOURCE: FINAL REPORTS Final Report [] Verified Date/Time/Personnel: 04/02/2024 10:40 EDT Staphylococcus coagulase negative Isolated from aerobe bottle only. Staphylococcus coagulase negative #2 Isolated from aerobe and anaerobe bottles. 1 out of 2 sets positive Organism is a potential contaminant. Clinical Significance undetermined. Please contact Microbiology if further work-up is required. PRELIMINARY REPORTS Preliminary Report [] Verified Date/Time/Personnel: 04/01/2024 08:57 EDT Staphylococcus coagulase negative Isolated from aerobe bottle only. Staphylococcus coagulase negative #2 Isolated from aerobe bottle only. 1 out of 2 sets positive Organism is a potential contaminant. Clinical Significance undetermined. Please contact Microbiology if further work-up is required. Final report to follow. Preliminary Report [] Verified Date/Time/Personnel: 03/29/2024 16:59 EDT Culture has been received in lab and is no growth to date. Routine cultures are held for 5 days. STAINS GSANA [] Verified Date/Time/Personnel: 03/31/2024 21:22 EDT Gram Positive Cocci in clusters GSAER [] Verified Date/Time/Personnel: 03/30/2024 10:41 EDT Gram Positive Cocci in clusters Performing Locations *1: This test was performed at: [facility], [address] [place] [address], [facility] , [facility] ([place]) Evaluation note 10-02-2018 Note Date & Type Note Facility 10-02-2018 Evaluation note Diagnosis Onset Date Paroxysmal atrial fibrillation acute Essential hypertension chron ic Ischemic cardiomyopathy lunchroom aide radames Presence of cardiac resynchronization therapy defibrillator (HEART DOCTOR-D) October, [facility] Work Phone: Evaluation note Note Date & Type Note Facility Evaluation note No assessment information availa ble [facility] Work Phone: Reason for referral (narrative) Note Date & Type Note Facility Reason for referral (narrative) No reason for referral information available [facility] Work Phone: Chief Complaint and Reason for Visit Chief Complaint ICD CHECK PER SHARLA / 2p w MMM EORDER Reason for Visit Paroxysmal atrial fi brillation Essential hypertension Ischemic cardiomyopathy Presence of cardiac resynchronization therapy defibrillator (HEART DOCTOR-D) Chief Complaint Admit Date Pacer Check Remote February 17, 2025 2:2 7am Pacer Check Remote May 19, 2025 3:34 am Chief Complaint Admit Date Pacer Check Remote May 19, 2025 3:34 am Annual in-clinic HEART DOCTOR-D f/u July 12:42pm Reason for Visit Admit Date Paroxysmal atrial fibrillation July 11, 2025 12:42pm Cardiomyopathy July 11, 2025 12:42pm Chronic systolic (congestive) heart fail ure July 11, 2025 12:42pm Ischemic cardiomyopathy July 11 025 12:42pm Presence of cardiac resynchr onization therapy defibrillator (HEART DOCTOR-D) July 11, 2025 12:42pm Chief Complaint Admit Date Pacer Check Remote May 19, 2025 3:34 am Pacer Check Remote July 11, 2025 9:00am Annual in-clinic HEART DOCTOR-D f/u July 12:42pm Chief Complaint Admit Date Pacer Check Remote May 19, 2025 3:34 am Pacer Check Remote July 11, 2025 9:00am Annual in-clinic HEART DOCTOR-D f/u July 12:42pm 1 Y FU August 14, 2025 2 :05pm Reason for Visit Admit Date Paroxysmal atrial fibrillation July 11, 2025 12:42pm Cardiomyopathy July 11, 2025 12:42pm Chronic systolic (congestive) heart fail ure July 11, 2025 12:42pm Ischemic cardiomyopathy July 11 025 12:42pm Presence of cardiac resynchr onization therapy defibrillator (HEART DOCTOR-D) July 11, 2025 12:42pm Paroxysmal atrial fibrillation August 022024 2:05pm Essential hypertension August 14 2:05pm Ischemic cardiomyopathy August 14 2:05pm Presence of cardiac resynchr onization therapy defibrillator (HEART DOCTOR-D) August 14, 2025 2:05pm Family History Relationship Condition Age at Onset Recorded Date/T jaky father Coronary artery disease Unknown brother Coronary artery disease Unknown Advance Directives Advance Directive Response Recorded Date/ Time Living Will No July 08 12:50pm Power of General Production Worker No July 08, 2020 12:50pm Advance Directive Response Recorded Date/ Time Living Will No July 08 12:50pm Do you have a Healthcare Power of General Production Worker? No July 08, 2020 12:50pm Summary Purpose Additional Source Comments Care Teams (unrecognized sec tion and content) Team Status: Active Member Role Status Dates Dr. Tamiko Copeland MD Family Provider Active Dr. Bebo Ernst MD Primary Care Provider Active Team Status: Inactive Member Role Status Dates Dr. Bebo Ernst MD Primary Care Provider, Dion Provider Active Corinne Bah Attending Provider Active Team Status: Inactive Member Role Status Dates Dr. Bebo Ernst MD Primary Care Provider Active Kia La PA, PA Attending Provider, Referr ing Provider Active Team Status: Active Member Role/Relationship Status Dates Dr. Tamiko Copeland MD Family Provider Active Dr. Bebo Somers MD Primary Care Provider Active Team Status: Inactive Member Role/Relationship Status Dates Dr. Bebo Somers MD Primary Care Provider Active Start: February 17, 2025 End: February 17, 2025 Dr. Austin Caceres MD Attending Provider Active S tart: February 17, 2025 End: February 17, 2025 Team Status: Inactive Member Role/Relationship Status Dates Dr. Bebo Somers MD Primary Care Provider Active Start: May 19, 2025 End: May 19, 2025 Dr. Austin Caceres MD Attending Provider Active S tart: May 19, 2025 End: May 19, 2025 Team Status: Inactive Member Role/Relationship Status Dates Dr. Bebo Somers MD Primary Care Provider Active Start: May 19, 2025 End: May 19, 2025 Dr. Austin Caceres MD Attending Provider Active S tart: May 19, 2025 End: May 19, 2025 Team Status: Inactive Member Role/Relationship Status Dates Dr. Bebo Somers MD Primary Care Provider Active Start: July 11, 2025 End: July 11, 2025 Dr. Bebo Somers MD Referring Provider Active St art: July 11, 2025 End: July 11, 2025 Corinne Bah Attending Provider Active Start: S [email or web address] 2024 End: July 11, 2025 Team Status: Inactive Member Role/Relationship Status Dates Dr. Bebo Somers MD Primary Care Provider Active Start: July 11, 2025 End: July 11, 2025 Dr. Austin Caceres MD Attending Provider Active S tart: July 11, 2025 End: July 11, 2025 Team Status: Inactive Member Role/Relationship Status Dates Dr. Bebo Somers MD Primary Care Provider Active Start: July 11, 2025 End: July 11, 2025 Dr. Bebo Somers MD Referring Provider Active St art: July 11, 2025 End: July 11, 2025 Corinne Bah Attending Provider Active Start: S eptemblorenzo 2024 End: July 11, 2025 Team Status: Active Member Role/Relationship Status Dates Dr. Tamiko Copeland MD Primary care physician Active Dr. Bebo Somers MD Primary care physician Active Team Status: Inactive Member Role/Relationship Status Dates Dr. Bebo Somers MD Primary care physician Active Start: May 19, 2025 End: May 19, 2025 Dr. Austin Caceres MD Attending physician Active Start: May 19, 2025 End: May 19, 2025 Team Status: Inactive Member Role/Relationship Status Dates Dr. Bebo Somers MD Primary care physician Active Start: July 11, 2025 End: July 11, 2025 Dr. Austin Caceres MD Attending physician Active Start: July 11, 2025 End: July 11, 2025 Team Status: Inactive Member Role/Relationship Status Dates Dr. Bebo Somers MD Primary care physician Active Start: July 11, 2025 End: July 11, 2025 Dr. Bebo Somers MD Referring Provider Active St art: July 11, 2025 End: July 11, 2025 Dr. Austin Caceres MD Attending physician Active Start: July 11, 2025 End: July 11, 2025 Team Status: Inactive Member Role/Relationship Status Dates Dr. Bebo Somers MD Primary care physician Active Start: August 14, 2025 End: August 14, 2025 Dr. Bebo Somers MD Referring Provider Active St art: August 14, 2025 End: August 14, 2025 Luis Alfredo Abbasi SIGNAL MAINTAINER, SIGNAL MAINTAINER-C Attending physician Active Start: August 14, 2025 End: August 14, 2025 Goals (unrecognized section and content) Goals may be documented in a n alternate sectionGoals may be documented in an alternate sectionGoals may be documented in an alternate sectionGoals may be documented in an alternate sectionGoals may be documented in an alternate section (unrecognized sect ion and content) No Status Records FoundNo Status Records FoundNo Status Records Found INFORMATION SOURCE (unrecogn ized section and content) DATE CREATED AUTHOR 04/03/2024 [facility] ([place]) DATE CREATED AUTHOR AUTHOR'S ORGANIZ ATION 04/05/2025 [facility] DATE CREATED AUTHOR AUTHOR'S ORGANIZ ATION 08/15/2025 [facility] FOR RECORDS PERTAINING TO PATIENTS WHO ARE OR HAVE BEEN ENROLLED IN A CHEMICAL DEPENDENCY/SUBSTANCEABUSE PROGRAM, SOME INFORMATION MAY BE OMITTED. This clinical summary was aggregated from multiple sources. Caution should be exercised in using it in the provision of clinical care. This summary normalizes information from multiple sources, and as a consequence, information in this document may materially change the coding, format and clinical context of patient data. In addition, data may be omitted in some cases. CLINICAL DECISIONS SHOULD BE BASED ON THE PRIMARY CLINICAL RECORDS. [facility]. provides no warranty or guarantee of the accuracy or completeness of information in this document.
[2025-09-23 23:00] VITALS: BP 148/76; PULSE 62; RESP 15; O2SAT 98
--- NOTE | 2025-09-23 23:18 | EDS_ITS ---
HPI History of Present Illness Chief Complaint: Syncope Informant: patient, spouse/S.O., family and EMS Narrative Narrative: 85-year-old male presenting to the emergency room following a reported syncopal episode. Patient states he was out to dinner and and was finished eating. states that he suddenly put his head down and seem to go unconscious. He was laid on the ground and states that he regained consciousness after about 2 minutes. She states that he was not observed to have any seizure-like activity or. That his defibrillator fired. He does not recall any chest pain shortness of breath or palpitations prior to the event. He states that he feels pretty good at the current time. He follows both in [place] and locally with cardiology. It is noted he has an ischemic cardiomyopathy. [facility] Medical History Paroxysmal atrial fibrillation Chronic systolic (congestive) heart failure Cardiomyopathy TIA (transient ischemic attack) Presence of cardiac resynchronization therapy defibrillator (PLANT CYTOLOGIST-D) (~10/29/18) Systolic dysfunction Hypertension Ischemic cardiomyopathy Home Medications ?Medication ?Instructions ?Recorded ?Last Taken ?Type coenzyme Q10 100 mg capsule 100 mg PO DAILY 07/08/20 U nknown History losartan 25 mg tablet 25 mg PO DAILY #90 tabs 08/02 01/24 Unknown Rx metoprolol succinate 25 mg 25 mg PO DAILY #90 tabs Unknown Rx tablet,extended release 24 hr Allergy/AdvReac Type Severity Reaction Status Date / Time No Known Allergies Allergy Verified 09/23/25 21:17 Family History Father CAD (coronary artery disease) Brother CAD (coronary artery disease) Surgical History History of tonsillectomy Social History Smoking Status: Never smoker alcohol intake: never substance use type: does not use ROS ROS ED Constitutional Constitutional ED: Denies chills, fever(s) or weight loss Eyes Eyes: Denies change in vision or diplopia ENT ENT ED: Denies ear pain, rhinorrhea or sore throat Cardiovascular Cardiovascular: Reports other Details: Syncope ; Denies chest pain, orthopnea, palpitations or racing heartbeat Respiratory/Chest Respiratory/Chest: Denies cough, dyspnea or orthopnea Gastrointestinal Gastrointestinal: Denies abdominal pain, diarrhea, nausea or vomiting Genitourinary Genitourinary ED: Denies dysuria, hematuria or urinary frequency Musculoskeletal Musculoskeletal: Denies arthralgias, myalgias or neck pain Integumentary Denies abscess or rash Neurologic Neurologic: Denies headache(s), paresthesias or weakness Psychiatric Psychiatric: Denies anxiety, depression, suicidal ideation or suicidal thoughts Endocrine Endocrinology: Denies polydipsia, polyphagia or polyuria Allergic/Immunologic Allergic/Immunologic ED: Denies mouth swelling, tongue swelling or urticaria EXAM Physical Exam Const Vital Signs: 09/23/25 21:18 09/23/25 21:18 09/23/25 22:16 Temperature 97.5 F L Temperature Source Oral Pulse Rate 57 L 60 Respiratory Rate 16 15 Respiratory Effort Normal Respiratory Pattern Normal Blood Pressure 139/83 H 142/80 H Blood Pressure Mean 101 100 Pulse Ox 96 98 Oxygen Delivery Method Room Air Room Air 09/23/25 23:00 09/23/25 23:59 09/24/25 00:00 Temperature 97.5 F L Temperature Source Pulse Rate 62 62 65 Respiratory Rate 15 16 16 Respiratory Effort Respiratory Pattern Blood Pressure 148/76 H 165/87 H 165/87 H Blood Pressure Mean 100 113 113 Pulse Ox 98 98 98 Oxygen Delivery Method Room Air Room Air Positive well nourished and well developed General Appearance ED: well developed and NAD HEENT Reports normocephalic, head/scalp atraumatic and moist mucous membranes Eyes PERRL and EOMs intact bilaterally Neck no lymphadenopathy, supple and no JVD Resp normal respiratory effort and clear to auscultation bilaterally Cardio regular rate, regular rhythm and no murmurs GI normal to inspection, nondistended, normoactive bowel sounds and non-tender Palpation: soft Back/Spine no CVA tenderness and normal ROM Extremity normal to inspection General Extremety ED: Negative for edema General Extremity: Negative for edema Neuro oriented x3 and CN's II-XII intact bilaterally Neuro Narrative: NIH of 0 Sensorium / Orientation: alert Motor Exam: strength 5/5 throughout Psych mental status grossly normal Mood & Affect: Negative for depressed or tearful Skin no rashes or lesions noted and no wounds MDM MDM MDM Narrative Medical decision making narrative: Differential diagnosis includes but limited to acute coronary syndrome anemia vasovagal syncope cardiac dysrhythmia pacemaker failure electrolyte abnormalities dehydration Prehospital EKGs were reviewed. Patient's white count is 8.7 hemoglobin 10.9 platelet count is 202. Creatinine is 2.48 with a BUN of 50. This appears near baseline for the patient. Glucose of 157. Initial troponin is 39 delta troponin will be obtained. My independent interpretation of the chest x-ray is no acute process. I do not see any obvious dislodged pacemaker leads I do not have a chest x-ray to compare the lead placement 2. His pacemaker was interrogated with no significant events noted to explain tonight symptoms. Patient continues to do well ambulates without difficulty. I spoke with the patient and his family regarding the above results. I do not see a clear etiology for his syncope but I do not feel given the above workup it is definitively cardiogenic. They are comfortable going home and following up if needed return if worsening History & Record Review Discussion w/independent historian: EMS personnel, Patient and Family Additional record(s) reviewed:: Prior outpatient record and Prior labs Lab Data Attestation: I reviewed the patient's lab results. Labs: Laboratory Results - last 24 hr 09/23/25 09/23/25 21:20 23:21 WBC 8.7 RBC 3.68 L Hgb 10.9 L Hct 32.5 L MCV 88.3 MCH 29.6 MCHC 33.5 RDW Std Deviation 46.2 H RDW Coeff of Darrian 14.4 Plt Count 202 MPV 11.3 Immature Gran % (Auto) 0.500 Neut % (Auto) 79.4 H Lymph % (Auto) 7.3 L Letcher % (Auto) 6.5 Eos % (Auto) 5.6 H Baso % (Auto) 0.7 Absolute Neuts (auto) 6.9 Absolute Lymphs (auto) 0.64 L Nucleated RBC % 0 Sodium 137 Potassium 4.5 Chloride 111 H Carbon Dioxide 16.1 L Anion Gap 10 BUN 50 H Creatinine 2.48 H Estim Creat Clear Calc 22.89 L Est GFR (MDRD) Non-Af 25 L BUN/Creatinine Ratio 20.2 H Glucose 157 H Calcium 8.4 Total Bilirubin 0.26 Direct Bilirubin 0.11 AST 21 ALT 11 Alkaline Phosphatase 83 Troponin T High Sens 39 H Troponin T Hi Sens 2 Hr 40 H Total Protein 6.0 Albumin 3.5 Globulin 2.4 Radiography Diagnostic Testing: Clinical Impression(s) from Imaging Studies Chest X-Ray 09/23/25 22:04 IMPRESSION: As above. Reading Location: [id number] EKG Initial EKG: Attestation: I personally reviewed and interpreted this EKG as follows: Comments: Atrially sensed ventricular paced rhythm ventricular rate of 57 bpm Discharge Plan Triage Chief Complaint: Syncope ED Provider: Buck Shields Dx/Rx/DC Orders Clinical Impression: Ischemic cardiomyopathy, Syncope and collapse Instructions: ED Fainting, Uncertain Cause Prescriptions: No Action losartan 25 mg tablet 25 mg PO DAILY Qty: 90 3RF metoprolol succinate 25 mg tablet extended release 24 hr 25 mg PO DAILY Qty: 90 3RF coenzyme Q10 100 MG capsule 100 mg PO DAILY Primary Care Provider: Bebo Somers Referrals: Bebo Somers MD [Primary Care Provider, [facility]] - 1 Week Print Language: Eritrean NIHSS NIHSS 1a. Level of Consciousness: 0 - Alert; keenly responsive 1b. LOC Questions: 0 - Answers BOTH questions correctly 1c. LOC Commands: 0 - Performs BOTH tasks correctly 2. Best Gaze: 0 - Normal 3. Visual: 0 - No visual loss 4. Facial Palsy: 0 - Normal symmetrical movements 5a. Left Arm: 0 - No drift; arm holds 90 (or 45) degrees for full 10 seconds 5b. Right Arm: 0 - No drift; arm holds 90 (or 45) degrees for full 10 seconds 6a. Left Le - No drift; leg holds 30-degree position for full 5 seconds 6b. Right Le - No drift; leg holds 30-degree position for full 5 seconds 7. Limb Ataxia: 0 - Absent 8. Sensory: 0 - Normal; no sensory loss 9. Best Language: 0 - No aphasia; normal 10. Dysarthria: 0 - Normal 11. Extinction and Inattention: 0 - No abnormality Total: 0
[2025-09-23 23:54] LABS: Troponin T High Sens 2 HR 40 ng/L (<=22)
[2025-09-23 23:59] VITALS: BP 165/87; PULSE 62; RESP 16; TEMP 36.4; O2SAT 98
[2025-09-24] VITALS: BP 165/87; PULSE 65; RESP 16; O2SAT 98
== END 2025-09-24 00:21 | disposition home or self-care (01) ==
PROVIDERS: Emergency Provider Emergency Medicine; PCP Family Medicine; Visit Provider Emergency Medicine
DX: I25.5 Ischemic cardiomyopathy (principal); I50.22 Chronic systolic (congestive) heart failure; I11.0 Hypertensive heart disease with heart failure; R55 Syncope and collapse; Z95.810 Presence of automatic (implantable) cardiac defibrillator; Z79.899 Other long term (current) drug therapy
CPT/HCPCS: 71045; 80048; 80076; 84484; 85025; 93005; 99285; A4216

== ENCOUNTER → 2025-10-04 | Outpatient (CLI) | payer SELFPAY ==
[2025-10-04 15:08] LABS: Hematocrit 37.0 % (40-54); Hemoglobin 12.4 g/dL (13.0-16.5); Immature Granulocytes Count 0.040 X10^3/uL (0.0-0.0); Mean Corp Hgb Conc 33.5 g/dL (32-36); Mean Corpuscular Volume 88.7 fL (80-94); Mean Platelet Vol. 11.1 fl (6.2-12.0); NRBC Flagged by Analyzer 0 % (0-5); Platelet Count 193 K/mm3 (150-450); RBC Distribution Width CV 14.4 % (11.6-14.6); RBC Distribution Width SD 46.5 fl (35.1-43.9); Red Blood Count 4.17 M/mm3 (4.6-6.2); White Blood Count 10.9 K/mm3 (4.4-11.0)
[2025-10-04 15:45] LABS: AST(SGOT) 22 U/L (<=37); Alanine Aminotransfer ALT/SGPT 14 U/L (<=46); Albumin, Serum 4.0 g/dL (3.4-4.8); Alkaline Phosphatase 99 U/L (40-129); Anion Gap 14 (5-15); BUN 42 mg/dL (4-19); BUN/Creat Ratio 17.9 RATIO (10-20); Calcium,Total 9.2 mg/dL (7.6-11.0); Carbon Dioxide 18.3 mmol/L (21.0-32.0); Chloride 108 mmol/L (98-108); Globulin 2.9 g/dL (2.2-4.2); Glucose 94 mg/dL (70-99); PSA,Total- Diagnostic 1.94 ng/mL (0.00-4.00); Potassium 5.1 mmol/L (3.3-5.1)
[2025-10-04 15:50] LABS: Creatinine, Urine (random) 95.80 mg/dL (39.00-259.00)
[2025-10-04 16:02] LABS: Microalbumin,Random Urine 982.0 mg/L (<20 mg/L)
[2025-10-11 05:07] LABS: PROEL- A/G Ratio 1.1 (0.7-1.7); PROEL- Albumin 3.4 g/dL (2.9-4.4); PROEL- Alpha-1 Globulin 0.3 g/dL (0.0-0.4); PROEL- Alpha-2 Globulin 0.8 g/dL (0.4-1.0); PROEL- Beta Globulin 1.0 g/dL (0.7-1.3); PROEL- Gamma Globulin 1.1 g/dL (0.4-1.8); PROEL- Globulin, Total 3.1 g/dL (2.2-3.9); PROEL- TOTAL PROTEIN 6.5 g/dL (6.0-8.5); PROEL-M-Spike 0.4 g/dL (Not Observed)
== END | disposition home or self-care (01) ==
LOC: MTLAB 13:04
PROVIDERS: PCP Family Medicine; Referring Provider Family Medicine; Visit Provider Family Medicine
DX: N18.4 Chronic kidney disease, stage 4 (severe) (principal)
CPT/HCPCS: 36415; 80053; 82043; 82088; 82570; 84153; 84165; 84244; 84443; 85025